=== PATIENT | female | born 1945 | race Caucasian/White ===

== ENCOUNTER 2018-09-02 04:01 | Inpatient (IN) | payer MEDICARE, OTHER ==
[2018-09-02] VITALS (20 sets, daily range): BP systolic 67–168; BP diastolic 18–107
[~2018-09-02] VITALS: Ht 157.5 cm; Wt 112.5 kg
--- NOTE | 2018-09-02 04:26 | NUR ---
PT BIB RA WITH A C/O AMS, FOUND SITTING BY HER BED AT [facility]. STAFF WAS UNABLE TO LIFT THE PT UP AND CALLED 911. PER STAFF AT [facility], PT IS ALTERED. PT WAS TRIAGED AND TAKEN TO ROOM #17. PT WAS PLACED ON THE MONITOR AND CONTINUOUS PULSE OX. PT HAS LIPEDEMA FROM THE WAIST TO THE FEET. PT HAS BUE BRUISES NOTED.
[2018-09-02 04:27] LABS: EOSINOPHILS % (AUTO) 1.1 % (0.0-6.0); HEMATOCRIT 32 % (33-45); HEMOGLOBIN 9.9 g/dL (11.5-14.8); LYMPHOCYTES # (AUTO) 1.7 /CMM (0.8-4.8); LYMPHOCYTES % (AUTO) 22.9 % (20.0-44.0); MEAN CORPUSCULAR HGB CONC 31 g/dl (31.0-36.0); MEAN CORPUSCULAR VOLUME 74 fL (82-100); MONOCYTES % (AUTO) 0.1 % (2.0-12.0); NEUTROPHILS # (AUTO) 5.7 /CMM (1.8-8.9); NEUTROPHILS % (AUTO) 75.9 % (43.0-81.0); PLATELET COUNT (AUTO) 194 /CMM (150-450); RED BLOOD CELL COUNT(AUTO) 4.29 MIL/uL (4.0-5.2); WHITE BLOOD COUNT (AUTO) 7.6 K/uL (4.3-11.0)
[2018-09-02 04:29] LABS: APPEARANCE,URINE Cloudy (CLEAR); BILIRUBIN,URINE MODERATE (NEGATIVE); BLOOD, URINE Negative Ery/uL (NEGATIVE); COLOR,URINE Yellow (YELLOW); KETONES,URINE 15 (NEGATIVE); LEUKOCYTE ESTERASE ,URINE Negative (NEGATIVE); NITRITE, URINE Negative (NEGATIVE); PROTEIN,URINE >=300 mg/dl (NEGATIVE); UGLUCOSE Negative (NEGATIVE)
[2018-09-02 04:35] LABS: CALCIUM, SERUM 8.4 mg/dL (8.5-10.1); CARBON DIOXIDE 29 mmol/L (21-32); CHLORIDE 99 mmol/L (98-107); CREATININE 2.3 mg/dL (0.6-1.3); GLUCOSE 89 mg/dL (74-106); POTASSIUM 3.9 mmol/L (3.5-5.1); SODIUM SERUM 138 mmol/L (136-145); UREA NITROGEN, BLOOD 55 mg/dL (7-18)
[2018-09-02 04:41] LABS: ALANINE AMINOTRANSFERASE 38 U/L (12-78); ALBUMIN 3.5 g/dL (3.4-5.0); ALKALINE PHOSPHATASE 188 U/L (46-116); ASPARTATE AMINOTRANSFERASE 31 U/L (15-37); BILIRUBIN,DIRECT 0.6 mg/dL (0.0-0.2); BILIRUBIN,TOTAL 1.1 mg/dL (0.2-1.0)
[2018-09-02 04:43] LABS: BACTERIA,URINE Few /HPF (None Seen); RBC,URINE 0-2 /HPF (0-2); SQUAMOUS EPITHELIAL CELL,UR Few /HPF (None Seen)
[2018-09-02 04:44] LABS: URINE AMORPHOUS URATE Moderate /HPF (None Seen)
--- NOTE | 2018-09-02 04:45 | NUR ---
CALLED HOUSE SUP FOR TELE BED
[2018-09-02 04:48] LABS: EOSINOPHILS % (MANUAL) 2 % (0-4); LYMPHOCYTES % (MANUAL) 16 % (16-48); MONOCYTES % (MANUAL) 4 % (0-11.0); NEUTROPHILS % (MANUAL) 78 (42-76)
[2018-09-02] MEDS ORDERED: FERR325T23 PO (05:24)
[2018-09-02] MEDS ORDERED: PANT40TA2 PO (05:24)
[2018-09-02] MEDS ORDERED: FURO-144 PO (05:24)
[2018-09-02] MEDS ORDERED: [UNRECOGNIZED DRUG - OTHER] (05:24)
[2018-09-02] MEDS ORDERED: VIT B-1 PO (05:24)
[2018-09-02] MEDS ORDERED: AMLO10TA7 PO (05:24)
[2018-09-02] MEDS ORDERED: SUCR1TAB PO (05:24)
--- NOTE | 2018-09-02 05:35 | NUR ---
CALLING REPORT TO TELE NURSE.
--- NOTE | 2018-09-02 05:41 | NUR ---
ER DOC ON PHONE WITH HOSPITALIST
[2018-09-02] MEDS ORDERED: NA P133E RC (05:46)
[2018-09-02] MEDS ORDERED: NOVOLOG FLEXPEN SQ (06:09)
[2018-09-02] MEDS ORDERED: SITA50TA PO (06:09)
[2018-09-02] MEDS ORDERED: TYL2T PO (06:09)
[2018-09-02] MEDS ORDERED: FOLI1TAB16 PO (06:09)
[2018-09-02] MEDS ORDERED: MYLANTA PO (06:09)
[2018-09-02] MEDS ORDERED: METO-357 PO (06:09)
[2018-09-02] MEDS ORDERED: MULT-1185 PO (06:09)
[2018-09-02] MEDS ORDERED: ONDA4TAB11 PO (06:09)
[2018-09-02] MEDS ORDERED: LUBI24CA5 PO (06:09)
[2018-09-02] MEDS ORDERED: ALBUT2 CONTNEB (06:09)
[2018-09-02] MEDS ORDERED: MAGN2400 PO (06:09)
[2018-09-02] MEDS ORDERED: IPRA12.9 IH (06:09)
[2018-09-02] MEDS ORDERED: HYDR-4075 PO (06:09)
[2018-09-02] MEDS ORDERED: ISOS10TA8 PO (06:09)
[2018-09-02] MEDS ORDERED: BISA-79 PR (06:09)
[2018-09-02] MEDS ORDERED: HYDR-4384 PO (06:09)
[2018-09-02] MEDS ORDERED: DOCU-141 PO (06:09)
--- NOTE | 2018-09-02 06:31 | NUR ---
RN NOTES 0600 Received patient via gurney accompanied by 2 ER staff. Admitted to Tele 327-2 due to AMS. Admission routine done. A/O to person only, Portuguese speaking, electric mule driver used. Patient claimed pain on throat, unable to rate the pain. Kept on bed comfortably. On O2 inhalation via NC @ 2LPM, no SOB/respiratory distress noted. Elevated HOB. Kept bed low and locked, siderails x3 up, bed alarm on. Call light at bedside. Endorsed to the next shift.
[2018-09-02] MEDS ORDERED: IV NS 0.9% 1,000 ML IV PRN (06:40)
[2018-09-02] MEDS ORDERED: MAGNESIUM HYDROXIDE 30 ML UDC PO PRN (07:00)
[2018-09-02] MEDS ORDERED: MAG HYDROX/AL HYDROX/SIMETH 30 ML UDC PO PRN (07:00)
[2018-09-02] MEDS ORDERED: BISACODYL (5 MG) 5 MG TABLET.DR PO SCH (07:00)
[2018-09-02] MEDS ORDERED: ALBUTEROL FS 2.5 MG/3 ML VIAL.NEB CONTNEB PRN (07:00)
[2018-09-02] MEDS: FOLIC ACID 1 MG TABLET PO SCH ×3 (07:00→17:53)
[2018-09-02] MEDS ORDERED: ONDANSETRON HCL/PF 4 MG/2 ML VIAL IVP PRN (07:00)
[2018-09-02] MEDS ORDERED: ZOLPIDEM TARTRATE 5 MG TABLET PO PRN (07:00)
--- NOTE | 2018-09-02 07:02 | NUR ---
RN NOTES STILL AWAITING FOR THE PHARMACY TO VERIFY MEDICATIONS ORDERED AT THIS TIME.
--- NOTE | 2018-09-02 09:00 | NUR ---
RN NOTES PATIENT HAS POLST FOR DNR FROM SNF. SPOKE WITH DR. SPARKS, DNR TO BE CONTINUED FOR HOSPITALIZATION PER MD.
[2018-09-02] MEDS: ISOSORBIDE MONONITRATE 20 MG TABLET PO SCH ×3 (09:45→17:00)
[2018-09-02] MEDS: METOPROLOL SUCCINATE 50 MG TAB.SR.24H PO SCH (09:48)
[2018-09-02] MEDS: DOCUSATE SODIUM 100 MG CAPSULE PO SCH ×2 (09:48→17:53)
[2018-09-02] MEDS: AMLODIPINE BESYLATE 10 MG TABLET PO SCH (09:48)
[2018-09-02] MEDS: FERROUS SULFATE (325 MG) 325 MG/TAB TABLET PO SCH ×2 (09:48→17:53)
[2018-09-02] MEDS: SUCRALFATE 1 G TABLET PO SCH ×2 (09:48→17:53)
[2018-09-02] MEDS: LINAGLIPTIN 5 MG TABLET PO SCH (09:51)
[2018-09-02] MEDS: hydrALAZINE HCL 10 MG TABLET PO SCH ×3 (09:53→17:00)
--- NOTE | 2018-09-02 13:45 | NUR ---
RN NOTES RECEIVED LAB RESULTS FOR AMMONIA LEVEL 93, NOTIFIED LYLY SPARKS DNP. AWAITING NEW ORDERS.
--- NOTE | 2018-09-02 14:34 | NUR ---
RN NOTES RECEIVED ORDER FROM DR SPARKS TO ADMINISTER LACTULOSE 20mg PO Q 6HRS FOR ELEVATED AMMONIA LEVEL. WILL CARRY OUT ORDER AND CONTINUE TO MONITOR PT.
[2018-09-02] MEDS: LACTULOSE 10 G/15 ML UDC (PYXIS) PO SCH ×2 (15:16→21:50)
--- NOTE | 2018-09-02 19:15 | NUR ---
MS RN CLOSING NOTES PT IN BED AWAKE A/O X1-2, AND ABLE TO MAKE NEEDS KNOWN. PT DENIES PAIN OR DISCOMFORT AT THIS TIME. BREATHING EVEN AND UNLABORED TOLERATING 2 LI. O2 THERAPY VIA NASAL CANNULA. IV ACCESS ON RIGHT WRIST G#20, PATENT AND INTACT WITH NO REDNESS OR SWELLING NOTED. SAFETY MEASURES IN PLACE WITH BED IN LOWEST AND LOCKED POSITION WITH SIDE RAILS UP X2. CALL LIGHT WITHIN REACH. ALL MEDICATIONS AND NEEDS MET. WILL ENDORSE TO THERMOPLASTIC TECHNICIAN NURSE FOR RAY.
--- NOTE | 2018-09-02 19:20 | NUR ---
RN NOTES RECEIVED PATIENT IN BED AWAKE A/O X1, ABLE TO MAKE NEEDS KNOWN. PATIENT DENIES PAIN OR DISCOMFORT AT THIS TIME. BREATHING EVEN AND UNLABORED TOLERATING 2 L O2 THERAPY VIA NASAL CANNULA. POSITIONED TOWARDS HER LEFT SIDE, IV ACCESS ON RIGHT WRIST G#20, PATENT AND INTACT WITH NO REDNESS OR SWELLING NOTED. SAFETY MEASURES IN PLACE WITH BED IN LOWEST AND LOCKED POSITION WITH SIDE RAILS UP X2. CALL LIGHT WITHIN REACH. WILL MONITOR ACCORDINGLY.
--- NOTE | 2018-09-02 19:50 | NUR ---
RN NOTES REPOSITIONED PATIENT TOGETHER WITH FRONT OFFICE SPEC, SATING 92% ON O2 AT 2LPM VIA NASAL CANNULA. WILL CONTINUE TO MONITOR.
--- NOTE | 2018-09-02 20:15 | NUR ---
RN NOTES PATIENT TRYING TO GET OUT OFF BED SEVERAL TIMES, REPOSITIONED PATIENT, WITH THE HELP OF CHAINSTITCH ELASTIC ATTACHER.
--- NOTE | 2018-09-02 20:15 | NUR ---
RN NOTES PATIENT TRYING TO GET OUT OF BED SEVERAL TIMES, REPOSITIONED PATIENT WITH THE HELP OF ACCOUNT RECEIVABLE ASSOCIATE, PATIENT NOTED UNRESPONSIVE STARTED TURNING BLUE AND PURPLISH AND MADE SOME GURGLING SOUND; CPR INITIATED. CHARGE NURSE CALLED FOR CODE BLUE AT 2017, ACLS AT 2019 BY CODE TEAM ( DR. Katherine BASILIO, ACLS NURSE ENRIQUE SHAH, NURSE PARTS REMOVER HEATHER LOYA, CHARGE NURSE Katherine LYN, RECORDER: Crystal DELUCARN, RTs Bennett BARROW,MAXIMILIANO, Lucien BRYANT). 2021 HR WAS 38 WITH PEA RHYTHM SATURATION OF 19% 1MG OF EPINEPHRINE GIVEN BY ACLS NURSE ENRIQUE, RHYTHM RESPONSE WAS SINUS ZAINAB, AT 2024 HR 56 WITH SINUS ZAINAB UNABLE TO OBTAIN BP RR 26 SATING 60%, HR WENT UP TO 103 WITH BP OF 91/26, CHECKED BLOOD SUGAR 99MG/DL, 2025 HR 69 BP 146/90 RR 26, STOPPED CPR, PATIENT IS DNR/DNI PER MD ORDER AT THE CHART. CHARGE NURSE NATHAN CALLED AND SPOKE TO SON ELEAZAR CORNEJO, SON WANTED A FULL CODE AND TO RESUSCITATE PATIENT, 2026 RESUMED CPR HR 103 SINUS TACH BP OF 146/90 RR28 SATING 67%, 2027 HR 73 SINUS RHYTHM BP 146/98 RR28, SATING 79%, 2034 HR 68 SINUS RHYTHM, BP 217/110 SATING 100%. 2039 TRANSFERRED TO ICU VIA BED PER ACLS PROTOCOL.
--- NOTE | 2018-09-02 20:18 | NUR ---
RN NOTES NOTED PATIENT TURNING BLUE WHILE TRYING TO REPOSITIONED THE PATIENT, UNRESPONSIVE, CPR INITIATED, CHARGE NURSE NATHAN CALLED FOR CODE BLUE.
--- NOTE | 2018-09-02 20:43 | NUR ---
RN NOTES REPORT GIVEN TO ICU NURSE VINI.
--- NOTE | 2018-09-02 20:45 | NUR ---
RN NOTES TRANSPORTED PATIENT TO ICU.
--- NOTE | 2018-09-02 20:50 | NUR ---
BIRDCAGE ASSEMBLER - NOTE - RECEIVED PT FROM 3W, PT WAS INTUBATED DUE TO RESPIRATORY FAILURE. PT HAS 7.5 ETT, 24 CM AT LIP, O2SAT 100%, PT ABDOMEN IS DISTENDED, PT IS AGITATED ON VENT, WILL START ON PROPOFOL, AQUACULTURE FARMER. PT IS IN SINUS ZAINAB/NSR HR 58-70S, BP WNL. PT HAS ONLY RIGHT HAND 20G IV. PT HAS SOME BRUISING ON THE LEGS. WILL CONTINUE TO MONITOR
[2018-09-02] MEDS ORDERED: EPINEPHRINE (1:10,000) SYRINGE 1 MG/10 ML DISP.SYRIN IVP ONE (21:00)
[2018-09-02] MEDS: PROPOFOL 100 ML IV PRN (21:34)
[2018-09-02 21:52] LABS: ABG OXYGEN SATURATION 99.6 % (92.0-98.5); ABG PCO2 51.7 mmHg (35.0-45.0); ABG PH 7.285 (7.350-7.450); ABG PO2 405.9 mmHg (75.0-100.0); AaDO2 255.4 mmHg; COHb 0.6 % (0.5-1.5); MetHb 0.5 % (0.0-1.5); O2Hb 98.5 % (94.0-97.0); PEEP,BG 5 cm H2O; SITE, ABG Left Radial; VT, ABG 500 mL
--- NOTE | 2018-09-02 22:08 | NUR ---
vent changes ac 18 per md larry post abg results verbal order titrate fio2 per spo2 Addendum: 09/02/18 at 2209 by KATH BRYANT RT Amended: Links added.
--- NOTE | 2018-09-02 22:12 | NUR ---
rt responded to overhead code blue. rt arrived at bedside cpr in progress pt ventilated by ambu bag and mask. pt intubated by er physician 7.5@24cm. pt transferred to icu at 2044 and plaved on vent settings ac 16 500 100% +5. vent plugged into red outlet, disconnect alarms checked. ambu bag at bedside. alarms set and audible. ett secure via anchor fast. small amount of thick red secretions. head of bed at 30 degrees. oral secretions suctioned via [place] Addendum: 09/02/18 at 2220 by KATH BRYANT RT Amended: Links added.
[2018-09-02] MEDS ORDERED: NOREPINEPHRINE 8 MG in IV D5W 500 ML IV PRN (22:30)
[2018-09-02] MEDS ORDERED: IV NS 0.9% 500 ML IV ONE (22:30)
--- NOTE | 2018-09-02 22:45 | NUR ---
PT TEMP UNABLE TO READ VIA ORAL OR AXILLARY, CORE TEMP 92.7, WILL APPLY LIDIA HENDRIX
[2018-09-02 22:56] LABS: BASOPHILS % (AUTO) 0.1 % (0.0-2.0); HEMATOCRIT 32 % (33-45); LYMPHOCYTES # (AUTO) 0.3 /CMM (0.8-4.8); LYMPHOCYTES % (AUTO) 3.4 % (20.0-44.0); MEAN CORPUSCULAR HGB CONC 31 g/dl (31.0-36.0); MEAN CORPUSCULAR VOLUME 74 fL (82-100); MONOCYTES # (AUTO) 0.5 /CMM (0.1-1.30); MONOCYTES % (AUTO) 5.1 % (2.0-12.0); NEUTROPHILS # (AUTO) 9.4 /CMM (1.8-8.9); NEUTROPHILS % (AUTO) 91.4 % (43.0-81.0); PLATELET COUNT (AUTO) 196 /CMM (150-450); RED BLOOD CELL COUNT(AUTO) 4.33 MIL/uL (4.0-5.2); WHITE BLOOD COUNT (AUTO) 10.3 K/uL (4.3-11.0)
[2018-09-02 23:03] LABS: CALCIUM, SERUM 8.1 mg/dL (8.5-10.1); CARBON DIOXIDE 24 mmol/L (21-32); CHLORIDE 101 mmol/L (98-107); CREATININE 2.7 mg/dL (0.6-1.3); GLUCOSE 114 mg/dL (74-106); POTASSIUM 4.4 mmol/L (3.5-5.1); SODIUM SERUM 141 mmol/L (136-145); UREA NITROGEN, BLOOD 61 mg/dL (7-18)
[2018-09-02 23:10] LABS: ALANINE AMINOTRANSFERASE 42 U/L (12-78); ALBUMIN 3.2 g/dL (3.4-5.0); ALKALINE PHOSPHATASE 173 U/L (46-116); ASPARTATE AMINOTRANSFERASE 42 U/L (15-37); BILIRUBIN,TOTAL 1.5 mg/dL (0.2-1.0); TOTAL PROTEIN, SERUM 7.4 g/dL (6.4-8.2)
[2018-09-02] MEDS: IV NS 0.9% 1,000 ML IV PRN (23:33)
--- NOTE | 2018-09-02 23:50 | NUR ---
fio2 decreased due to increased spo2 rn aware Addendum: 09/03/18 at 0414 by KATH FARRIS Amended: Links added.
[2018-09-03] VITALS (111 sets, daily range): BP systolic 41–144; BP diastolic 21–70
[2018-09-03] MEDS ORDERED: CEFTRIAXONE 1 G VIAL ONE (00:56)
[2018-09-03] MEDS ORDERED: CEFTRIAXONE 1 G in IV D5W 50 ML IV SCH (01:00)
[2018-09-03] MEDS: LACTULOSE 10 G/15 ML UDC (PYXIS) PO SCH ×4 (02:17→21:14)
[2018-09-03] MEDS ORDERED: NOREPINEPHRINE 4 MG/4 ML AMPUL IV ONE (03:23)
[2018-09-03] MEDS: NOREPINEPHRINE 8 MG in IV D5W 500 ML IV PRN ×2 (03:34→08:49)
[2018-09-03 04:50] LABS: BASOPHILS % (AUTO) 0.1 % (0.0-2.0); EOSINOPHILS % (AUTO) 0.2 % (0.0-6.0); HEMATOCRIT 32 % (33-45); HEMOGLOBIN 9.9 g/dL (11.5-14.8); LYMPHOCYTES # (AUTO) 0.8 /CMM (0.8-4.8); LYMPHOCYTES % (AUTO) 7.8 % (20.0-44.0); MEAN CORPUSCULAR HGB CONC 32 g/dl (31.0-36.0); MEAN CORPUSCULAR VOLUME 74 fL (82-100); MONOCYTES # (AUTO) 0.6 /CMM (0.1-1.30); MONOCYTES % (AUTO) 5.8 % (2.0-12.0); NEUTROPHILS # (AUTO) 8.5 /CMM (1.8-8.9); NEUTROPHILS % (AUTO) 86.1 % (43.0-81.0); PLATELET COUNT (AUTO) 170 /CMM (150-450); RED BLOOD CELL COUNT(AUTO) 4.28 MIL/uL (4.0-5.2); WHITE BLOOD COUNT (AUTO) 9.9 K/uL (4.3-11.0)
[2018-09-03 05:06] LABS: ALANINE AMINOTRANSFERASE 34 U/L (12-78); ALBUMIN 2.9 g/dL (3.4-5.0); ALKALINE PHOSPHATASE 163 U/L (46-116); ASPARTATE AMINOTRANSFERASE 37 U/L (15-37); BILIRUBIN,TOTAL 1.3 mg/dL (0.2-1.0); CALCIUM, SERUM 7.9 mg/dL (8.5-10.1); CARBON DIOXIDE 25 mmol/L (21-32); CHLORIDE 100 mmol/L (98-107); CREATININE 2.9 mg/dL (0.6-1.3); GLUCOSE 102 mg/dL (74-106); MAGNESIUM 2.5 mg/dL (1.8-2.4); PHOSPHORUS 6.7 mg/dL (2.5-4.9); POTASSIUM 4.3 mmol/L (3.5-5.1); SODIUM SERUM 137 mmol/L (136-145); TOTAL PROTEIN, SERUM 6.9 g/dL (6.4-8.2); UREA NITROGEN, BLOOD 61 mg/dL (7-18)
[2018-09-03 05:33] LABS: CHOLESTEROL 96 mg/dL (<200); CREATINE KINASE, TOTAL 175 U/L (26-192); FERRITIN 53 ng/mL (8-388); HDL CHOLESTEROL 47 mg/dL (40-60); LDL 43 mg/dL (0-99); THYROID STIMULATING HORMONE 11.073 uIU/mL (0.358-3.74); TRIGLYCERIDES 92 mg/dL (30-150)
[2018-09-03 05:38] LABS: IRON, SERUM 52 ug/dl (50-175); TOTAL IRON BINDING CAPACITY 378 ug/dl (250-450)
--- NOTE | 2018-09-03 07:10 | NUR ---
RN INITIAL NOTES RECEIVED PT INTUBATED, ON VENT. HOB ELEVATED. PT NOTED WITH MILD AGITATION. UNCONTROLLED COUGHING AND TRYING TO MOVE BILATERAL HANDS TOWARDS ETT. DIPRIVAN INCREASED PER PROTOCOL. OG IN PLACE,CLAMPED. NO RESIDUAL NOTED. IV LINES IN PLACE. ON LEVO AT 8MCG/MIN AND NS AT 60ML/HR. AWAITING FOR PICC INSERTION. FC IN PLACE. BLE ELEVATED. WILL CLOSELY MONITOR.
--- NOTE | 2018-09-03 07:46 | NUR ---
WOUND CARE CONSULT: PT UNSTABLE FOR SKIN ASSESSMENT AT THIS TIME, S/P CODE BLUE AND INTUBATED, AGITATED. DISCUSSED SKIN PROTECTION WITH NURSING STAFF. WILL SEE PT PT CONDITION PERMITS.
[2018-09-03] MEDS: FOLIC ACID 1 MG TABLET PO SCH ×2 (08:25→16:43)
[2018-09-03] MEDS: LINAGLIPTIN 5 MG TABLET PO SCH (08:25)
[2018-09-03] MEDS: DOCUSATE SODIUM 100 MG CAPSULE PO SCH ×2 (08:25→16:43)
[2018-09-03] MEDS: FERROUS SULFATE (325 MG) 325 MG/TAB TABLET PO SCH ×2 (08:25→16:43)
[2018-09-03] MEDS: SUCRALFATE 1 G TABLET PO SCH ×2 (08:25→16:43)
[2018-09-03] MEDS: hydrALAZINE HCL 10 MG TABLET PO SCH ×2 (08:26→13:00)
[2018-09-03] MEDS: AMLODIPINE BESYLATE 10 MG TABLET PO SCH (08:26)
[2018-09-03] MEDS: ISOSORBIDE MONONITRATE 20 MG TABLET PO SCH ×2 (08:26→13:00)
[2018-09-03] MEDS: METOPROLOL SUCCINATE 50 MG TAB.SR.24H PO SCH (08:26)
[2018-09-03 09:54] LABS: ABG BASE EXCESS -1.6 mmol/L; ABG OXYGEN SATURATION 90.8 % (92.0-98.5); ABG PCO2 37.2 mmHg (35.0-45.0); ABG PH 7.405 (7.350-7.450); ABG PO2 63.7 mmHg (75.0-100.0); AaDO2 323.2 mmHg; COHb 0.9 % (0.5-1.5); MetHb 0.6 % (0.0-1.5); O2Hb 89.4 % (94.0-97.0); PEEP,BG 5 cm H2O; SITE, ABG Left Radial; VT, ABG 500 mL
--- NOTE | 2018-09-03 10:00 | NUR ---
RN NOTES 0930 SEEN AND EXAMINED BY DR MÉNDEZ. PT INTUBATED, ON VENT. PT SEDATED, UNABLE TO DO SEDATION VACATION D/T AGITATION. ON LEVO AT 10MCG/MIN. AWARE OF ABG RESULT. NO NEW ORDER. WILL MONITOR 1000 SEEN AND EXAMINED BY DR LIU. AWARE OF LAB VALUES, ABG AND CXR RESULT. PT INTUBATED, ON VENT. ON DIPRIVAN AT 20MCG/KG/MIN AND LEVO AT 60ML/HR. HEPARIN ORDERED. WILL CLOSELY MONITOR.
[2018-09-03] MEDS: HEPARIN SODIUM, PORCINE 5000 UNITS/1 ML VIAL SQ SCH ×2 (10:46→21:14)
[2018-09-03] MEDS: PROPOFOL 100 ML IV PRN ×3 (13:04→23:44)
--- NOTE | 2018-09-03 13:30 | NUR ---
RN NOTES CALL RECEIVED FROM DR DEAL REGARDING CHEST XRAY RESULTS THAT ET TUBE THAT NEEDS TO BE PULLED BACK 4-5 CM. ALEXIA BUCKLEY NOTIFED.
[2018-09-03] MEDS: IV NS 0.9% 1,000 ML IV PRN (15:30)
--- NOTE | 2018-09-03 18:37 | NUR ---
RT END OF THE SHIFT REPORT, PT. 73 YEARS OLD FEMALE REC. IN AM 0700 PT. ORALLY INTUBATED ( FOUND ETT # 7.5 @26 CM LIP LINE) ON VENT WITH NOTED SETTINGS, @1340 ETT TUBE ADJUSTED 22 CM LIP LINE ( PULLED OUT 4 CM PER MD ORDER ) T/O DAY NO OTHER CHANGES AND PT. REMAIN STABLE, B/S BILATERALLY RALES, SUX'D FOR MINIMAL/AMT AMT REDDISH SECRETIONS, MANAGER COUNCIL DONE, EQUAL CHEST RISE NOTED, HME CHANGED, VENT PLUGGED INTO RED OUT LET. AMBU BAG REMAIN AT THE BEDSIDE. REPORT WILL PASS TO PM SHIFT. Addendum: 09/03/18 at 1843 by VALARIE JAIME RT Amended: Links added.
--- NOTE | 2018-09-03 18:40 | NUR ---
RN CLOSING NOTES PT REMAINS INTUBATED, ON VENT. PT KEPT SEDATED. NO RESPIRATORY DISTRESS NOTED. PT REMAINS ON LEVO AND DIPRIVAN, TITRATED ACCORDINGLY. KEPT CLEAN AND DRY. REPOSITIONED Q2. KEPT COMFORTABLE. WILL MONITOR
--- NOTE | 2018-09-03 20:00 | NUR ---
LIMEROCK TOWER LOADER - NOTES - PT IS INTUBATED, ON VENT. PT KEPT SEDATED. NO RESPIRATORY DISTRESS NOTED. PT REMAINS ON LEVO AND DIPRIVAN, TITRATED ACCORDINGLY. KEPT CLEAN AND DRY. REPOSITIONED Q2. KEPT COMFORTABLE. WILL MONITOR
[2018-09-03 20:12] LABS: APPEARANCE,URINE TURBID (CLEAR); BILIRUBIN,URINE 2+ (NEGATIVE); BLOOD, URINE 3+ Ery/uL (NEGATIVE); COLOR,URINE DARK YELLO (YELLOW); KETONES,URINE TRACE (NEGATIVE); LEUKOCYTE ESTERASE ,URINE 2+ (NEGATIVE); NITRITE, URINE NEGATIVE (NEGATIVE); PROTEIN,URINE 3+ mg/dl (NEGATIVE); UGLUCOSE NEGATIVE (NEGATIVE)
--- NOTE | 2018-09-03 20:18 | NUR ---
RECEIVED PT INTUBATED 7.5 ETT SECURED AT 22CM AT THE LIP. NO RESP DISTRESS NOTED, PT TOLERATING VENT SETTINGS. SX'D FOR MOD AMT OF THICK BALLARD SECRETIONS. VENT ALARMS SET AND AUDIBLE. CUFF B2B MANAGED SERVICE SALES EXEC. VENT PLUGGED INTO RED OUTLET. WILL CONTINUE TO MONITOR. Addendum: 09/03/18 at 2020 by ALEJO FERNANDES RT Amended: Links added.
[2018-09-03 20:23] LABS: CREATININE, URINE 250.6 MG/DL (30.0-125.0); URINE TOTAL PROTEIN 227.5 mg/dL (0-11.9)
[2018-09-03 20:33] LABS: RBC,URINE 81-100 /HPF (0-2); SQUAMOUS EPITHELIAL CELL,UR Few /HPF (None Seen); WBC,URINE 51-80 /HPF (0-3)
[2018-09-03 20:34] LABS: BACTERIA,URINE Many /HPF (None Seen)
[2018-09-03] MEDS: PIPERACILLIN /TAZOBACTAM 3.375 G in IV D5W 100 ML IV SCH (20:56)
[2018-09-03] MEDS ORDERED: PIPERACILLIN /TAZOBACTAM 2.25 G in IV D5W 50 ML IV SCH (21:00)
--- NOTE | 2018-09-03 21:32 | NUR ---
SPUTUM COLLECTED. RN NOTIFIED.
[2018-09-03 22:01] LABS: EOSINOPHIL,URINE None Seen
[2018-09-03] MEDS: NOREPINEPHRINE 16 MG in IV D5W 500 ML IV PRN (23:44)
[2018-09-04] VITALS (104 sets, daily range): BP systolic 80–123; BP diastolic 32–74
[2018-09-04] MEDS: LACTULOSE 10 G/15 ML UDC (PYXIS) PO SCH ×4 (03:38→20:53)
[2018-09-04 04:14] LABS: BASOPHILS # (AUTO) 0.1 /CMM (0.0-0.2); BASOPHILS % (AUTO) 0.4 % (0.0-2.0); EOSINOPHILS % (AUTO) 0.4 % (0.0-6.0); HEMATOCRIT 33 % (33-45); HEMOGLOBIN 10.3 g/dL (11.5-14.8); LYMPHOCYTES # (AUTO) 1.2 /CMM (0.8-4.8); LYMPHOCYTES % (AUTO) 8.1 % (20.0-44.0); MEAN CORPUSCULAR HGB CONC 32 g/dl (31.0-36.0); MEAN CORPUSCULAR VOLUME 73 fL (82-100); MONOCYTES # (AUTO) 1.4 /CMM (0.1-1.30); MONOCYTES % (AUTO) 9.1 % (2.0-12.0); NEUTROPHILS # (AUTO) 12.3 /CMM (1.8-8.9); PLATELET COUNT (AUTO) 234 /CMM (150-450); RED BLOOD CELL COUNT(AUTO) 4.45 MIL/uL (4.0-5.2); WHITE BLOOD COUNT (AUTO) 15.1 K/uL (4.3-11.0)
[2018-09-04 04:27] LABS: ALANINE AMINOTRANSFERASE 38 U/L (12-78); ALBUMIN 2.8 g/dL (3.4-5.0); ALKALINE PHOSPHATASE 159 U/L (46-116); ASPARTATE AMINOTRANSFERASE 42 U/L (15-37); BILIRUBIN,TOTAL 1.2 mg/dL (0.2-1.0); CALCIUM, SERUM 7.4 mg/dL (8.5-10.1); CARBON DIOXIDE 25 mmol/L (21-32); CHLORIDE 98 mmol/L (98-107); CREATININE 3.2 mg/dL (0.6-1.3); MAGNESIUM 2.5 mg/dL (1.8-2.4); PHOSPHORUS 6.6 mg/dL (2.5-4.9); POTASSIUM 4.5 mmol/L (3.5-5.1); SODIUM SERUM 135 mmol/L (136-145); TOTAL PROTEIN, SERUM 6.9 g/dL (6.4-8.2); UREA NITROGEN, BLOOD 68 mg/dL (7-18)
[2018-09-04 04:39] LABS: GLUCOSE 167 mg/dL (74-106)
[2018-09-04 04:43] LABS: SERUM AMMONIA 95 umol/L (11-32)
[2018-09-04] MEDS: PROPOFOL 100 ML IV PRN ×4 (05:15→20:48)
[2018-09-04 06:04] LABS: EOSINOPHILS % (MANUAL) 1 % (0-4); LYMPHOCYTES % (MANUAL) 10 % (16-48); MONOCYTES % (MANUAL) 9 % (0-11.0); NEUTROPHILS % (MANUAL) 80 (42-76)
[2018-09-04] MEDS: IV NS 0.9% 1,000 ML IV PRN (06:39)
--- NOTE | 2018-09-04 07:30 | NUR ---
RECEIVED CARE OF PATIENT. INTUBATED 7.10/23 TOLERATING VENT SETTINGS NO SOB NOTED. PATIENT CURRENTLY ON LEVO AND DIPRIVAN; SEE SPREADSHEET. LIGHTLY SEDATED AND GRIMACES TO PAIN/MOVEMENT. PICC LINE C/D/I/P WITH GOOD BLOOD RETURN. GUIDRY CATH TO GRAVITY. PATIENT NOTED WITH VERY LOOSE STOOL S/P LACTULOSE ADMIN; BED BATH COMPLETED. SKIN, SAFETY, ASPIRATION PRECAUTIONS IN PLACE AND WILL MONITOR
--- NOTE | 2018-09-04 07:41 | NUR ---
RT PATIENT REC'D INTUBATED ON [facility] VENT WITH ORDERED SETTINGS IN CRITICAL CONDITION. VENT ALARMS CHECKED + AUDIBLE. CUFF PRESSURE CHECKED BLOCK TESTER. B/S DIM. SUCTIONED AIRWAY WITH SMALL AMT BALLARD SEMITHICK SECRETIONS. AMBU BAG AT [facility]. Addendum: 09/04/18 at 1753 by JOAQUIN STOCK RT Amended: Links added.
[2018-09-04] MEDS: PIPERACILLIN /TAZOBACTAM 3.375 G in IV D5W 100 ML IV SCH ×2 (08:03→20:47)
[2018-09-04 08:10] LABS: ABG BASE EXCESS -4.4 mmol/L; ABG OXYGEN SATURATION 96.9 % (92.0-98.5); ABG PCO2 30.6 mmHg (35.0-45.0); ABG PH 7.416 (7.350-7.450); ABG PO2 100.1 mmHg (75.0-100.0); COHb 0.5 % (0.5-1.5); MetHb 0.7 % (0.0-1.5); O2Hb 95.7 % (94.0-97.0); SITE, ABG Right Radial
--- NOTE | 2018-09-04 08:16 | NUR ---
WOUND CARE: PT WAS AGAIN AGITATED WHEN SKIN ASSESSMENT ATTEMPTED THIS AM. WILL SEE PT PT CONDITION PERMITS. RECOMMEND BARIMAX ETS AIR BED. DISCUSSED WITH NURSING STAFF. ALL SKIN PROTECTION RECOMMENDATIONS IN PLACE AND DISCUSSED WITH NURSING STAFF.
[2018-09-04] MEDS: FERROUS SULFATE (325 MG) 325 MG/TAB TABLET PO SCH ×2 (08:21→16:40)
[2018-09-04] MEDS: FOLIC ACID 1 MG TABLET PO SCH ×2 (08:21→16:40)
[2018-09-04] MEDS: Z GUARD REMEDY 2 OZ OINT TP PRN (08:21)
[2018-09-04] MEDS: DOCUSATE SODIUM 100 MG CAPSULE PO SCH ×2 (08:21→16:40)
[2018-09-04] MEDS: SUCRALFATE 1 G TABLET PO SCH ×2 (08:21→16:40)
[2018-09-04] MEDS: LINAGLIPTIN 5 MG TABLET PO SCH (08:21)
[2018-09-04] MEDS: HEPARIN SODIUM, PORCINE 5000 UNITS/1 ML VIAL SQ SCH ×2 (08:31→20:57)
--- NOTE | 2018-09-04 08:35 | NUR ---
RESUMING SEDATION. PATIENT AGITATED AND TACHYPNEIC, THRASHING HEAD AND ATTEMPTING TO PULL ETT OUT. RESUMING SEDATION PER PROTOCOL
--- NOTE | 2018-09-04 08:45 | NUR ---
DR MÉNDEZ AT BEDSIDE MD UPDATED ON PATIENT CONDITION. NO NEW ORDERS AT THIS TIME.
--- NOTE | 2018-09-04 08:55 | NUR ---
DR LIU AT BEDSIDE. AWARE PATIENT SWELLING INCREASED AND ABDOMEN IS SEVERELY DISTENDED AND FIRM. NO OUTPUT FROM LIS OGT.
--- NOTE | 2018-09-04 09:24 | NUR ---
DR CANTOR AT BEDSIDE. MD AWARE SWELLING INCREASED. PER MD PLEASE STOP IVF NS
--- NOTE | 2018-09-04 11:00 | NUR ---
DR GREY AT BEDSIDE. UPDATED PATIENT UO ABOUT 20ML/HOUR
--- NOTE | 2018-09-04 11:40 | NUR ---
WOUND CARE CONSULT: PT PRESENTS WITH 4+ PITTING EDEMA WHICH IS GENERALIZED AND HARDENED SKIN TO ABDOMEN AND THIGHS, PRESENT ON ADMISSION. SKIN TEAR NOTED TO RT ELBOW AREA. PT HAS GUIDRY CATH AND RECTAL TUBE. RECOMMENDATIONS MADE FOR SKIN PROTECTION AND WOUND CARE. DISCUSSED WITH NURSING STAFF. WILL SEE APOLLON. MARQUITA ETS AIR BED ORDERED. IN AGREEMENT WITH PLAN OF CARE. CURRENT MANINDER SCORE IS 12. PT INTUBATED. Addendum: 09/04/18 at 1143 by LESLIE SWANN WNDNU Amended: Links added.
[2018-09-04] MEDS: ALBUMIN 25% 25 GM in PREMIX 1 EA IV SCH ×2 (13:02→18:32)
[2018-09-04 13:10] LABS: PTH, INTACT 165 pg/mL (15-65)
--- NOTE | 2018-09-04 18:50 | NUR ---
ALL DUE MEDS GIVEN AND ALL NEEDS MET. PATIENT CURRENT LEVO AT 8MCG/MIN AND DIPRIVAN 25MCG/KG/MIN AND SEDATED GRIMACING TO PAINFUL STIMULI. TOLERATING VENT SETTINGS NO SOB, DIFFICULTY BREATHING. GUIDRY TO GRAVITY AND PATENT INCREASED URINE OUTPUT TODAY. FLEXI SEAL IN PLACE S/T DIARRHEA FROM LACTULOSE; CLEAN AND DRY WITH 500ML OUTPUT. PATIENT CHANGED TO [facility] BED PER ORDER. SAFETY, SKIN, ASPIRATION PRECAUTIONS IN PLACE AND MONITORED THROUGHOUT DAY.
--- NOTE | 2018-09-04 19:39 | NUR ---
PT RECEIVED ORALLY INTUBATED WITH 7.5 ETT SECURED@ 22 CM ON MECHANICAL VENT W/ NOTED SETTINGS PER MD ORDER. PT IS SEDATED. VENT ALARMS CHECKED, VENT PLUGGED INTO RED OUTLET, AMBU BAG AT BEDSIDE. SUCTIONED MODERATE AMOUNT OF PINK TINGED SECRETIONS. ETT PATENT AND SECURED. METAL WORKER CUFF PRESSURE NOTED. NO RESPIRATORY DISTRESS NOTED AT THIS TIME . WILL CONTINUE TO MONITOR THE PT.
--- NOTE | 2018-09-04 20:20 | NUR ---
RN NOTES RECEIVED PATIENT ORALLY INTUBATED WITH ETT 7.5/22 CM AT LIP TOLERATING VENT SETTINGS OF AC 18 TV 500 FIO2 40% PEEP5 . NO SOB NOTED.SEDATED WITH DIPRIVAN RESPONSIVE TO PAIN BY GRIMACING. ALMAZ PICC LINE INTACT WITH GOOD BLOOD RETURN RUNNING WITH DIPRIVAN AND AND LEVOPHED . OGT CLAMPED NO RESIDUAL PRESENT INTACT AND PATENT. GUIDRY CATH TO GRAVITY. FLEXISEAL INTACT WITH VERY LOOSE STOOL. TURNED AND REPOSITIONED THE PATIENT BED KEPT IN LOWEST POSSIBLE POSITION. WILL CONTINUE TO MONITOR.
[2018-09-04] MEDS: DOXYCYCLINE HYCLATE (100 MG) 100 MG TABLET PO SCH (20:53)
[2018-09-05] VITALS (105 sets, daily range): BP systolic 86–142; BP diastolic 23–76
[2018-09-05] MEDS: PROPOFOL 100 ML IV PRN ×5 (01:58→23:36)
[2018-09-05] MEDS: LACTULOSE 10 G/15 ML UDC (PYXIS) PO SCH ×4 (02:00→20:40)
[2018-09-05] MEDS: ALBUMIN 25% 25 GM in PREMIX 1 EA IV SCH (02:55)
[2018-09-05 04:51] LABS: BASOPHILS # (AUTO) 0.1 /CMM (0.0-0.2); BASOPHILS % (AUTO) 0.6 % (0.0-2.0); EOSINOPHILS % (AUTO) 3.1 % (0.0-6.0); HEMATOCRIT 32 % (33-45); HEMOGLOBIN 10.2 g/dL (11.5-14.8); LYMPHOCYTES # (AUTO) 1.4 /CMM (0.8-4.8); LYMPHOCYTES % (AUTO) 17.4 % (20.0-44.0); MEAN CORPUSCULAR HGB CONC 32 g/dl (31.0-36.0); MEAN CORPUSCULAR VOLUME 74 fL (82-100); MONOCYTES # (AUTO) 0.9 /CMM (0.1-1.30); MONOCYTES % (AUTO) 10.6 % (2.0-12.0); NEUTROPHILS # (AUTO) 5.6 /CMM (1.8-8.9); NEUTROPHILS % (AUTO) 68.3 % (43.0-81.0); PLATELET COUNT (AUTO) 171 /CMM (150-450); RED BLOOD CELL COUNT(AUTO) 4.37 MIL/uL (4.0-5.2); WHITE BLOOD COUNT (AUTO) 8.2 K/uL (4.3-11.0)
[2018-09-05 05:08] LABS: ALANINE AMINOTRANSFERASE 27 U/L (12-78); ALBUMIN 3.8 g/dL (3.4-5.0); ALKALINE PHOSPHATASE 136 U/L (46-116); ASPARTATE AMINOTRANSFERASE 21 U/L (15-37); BILIRUBIN,TOTAL 1.4 mg/dL (0.2-1.0); CALCIUM, SERUM 7.7 mg/dL (8.5-10.1); CARBON DIOXIDE 23 mmol/L (21-32); CHLORIDE 99 mmol/L (98-107); CREATININE 2.9 mg/dL (0.6-1.3); GLUCOSE 204 mg/dL (74-106); MAGNESIUM 2.6 mg/dL (1.8-2.4); PHOSPHORUS 5.9 mg/dL (2.5-4.9); POTASSIUM 3.2 mmol/L (3.5-5.1); SODIUM SERUM 137 mmol/L (136-145); TOTAL PROTEIN, SERUM 7.3 g/dL (6.4-8.2); UREA NITROGEN, BLOOD 73 mg/dL (7-18)
[2018-09-05 05:11] LABS: *SPE A/G RATIO 0.8 (0.7-1.7); *SPE ALBUMIN 2.8 g/dL (2.9-4.4); *SPE ALPHA-1-GLOBULIN 0.3 g/dL (0.0-0.4); *SPE ALPHA-2-GLOBULIN 0.6 g/dL (0.4-1.0); *SPE BETA GLOBULIN 1.1 g/dL (0.7-1.3); *SPE GLOBULIN, TOTAL 3.5 g/dL (2.2-3.9); *SPE M-SPIKE Not Observed g/dL (Not Observed); *SPEGAMMA GLOBULIN 1.6 g/dL (0.4-1.8)
[2018-09-05] MEDS: NOREPINEPHRINE 16 MG in IV D5W 500 ML IV PRN ×2 (06:12→18:20)
[2018-09-05 06:23] LABS: EOSINOPHILS % (MANUAL) 2 % (0-4); LYMPHOCYTES % (MANUAL) 15 % (16-48)
[2018-09-05 06:24] LABS: MONOCYTES % (MANUAL) 7 % (0-11.0); NEUTROPHILS % (MANUAL) 76 (42-76)
--- NOTE | 2018-09-05 07:30 | NUR ---
RN NOTES PATIENT REMAINED SEDATED WITH DIPRIVAN. NO SIGNIFICANT CHANGED. CONTINUE WITH LEVOPHED TITRATED ORDERED. ETT AND VENT SETTING TOLERATED WELL. AFEBRILE THROUGHOUT THE SHIFT. ALL DUE MEDICINE GIVEN ORDERED. FLEXISEAL AND GUIDRY CATH INTACT AND PATENT DRAINED VIA GRAVITY. TURNED AND REPOSITIONED Q 2H AND PRN. ENDORSED CONTINUITY OF CARE TO AM NURSE.
[2018-09-05] MEDS: PIPERACILLIN /TAZOBACTAM 3.375 G in IV D5W 100 ML IV SCH ×2 (07:48→20:36)
[2018-09-05] MEDS: DOXYCYCLINE HYCLATE (100 MG) 100 MG TABLET PO SCH ×2 (09:26→20:41)
[2018-09-05] MEDS: FOLIC ACID 1 MG TABLET PO SCH ×2 (09:26→17:58)
[2018-09-05] MEDS: SUCRALFATE 1 G TABLET PO SCH ×2 (09:26→17:58)
[2018-09-05] MEDS: LINAGLIPTIN 5 MG TABLET PO SCH (09:26)
[2018-09-05] MEDS: FERROUS SULFATE (325 MG) 325 MG/TAB TABLET PO SCH ×2 (09:26→17:58)
[2018-09-05] MEDS: DOCUSATE SODIUM 100 MG CAPSULE PO SCH ×2 (09:26→17:00)
[2018-09-05] MEDS: HEPARIN SODIUM, PORCINE 5000 UNITS/1 ML VIAL SQ SCH ×2 (09:28→20:41)
[2018-09-05 09:48] LABS: ABG BASE EXCESS -3.1 mmol/L; ABG PCO2 32.5 mmHg (35.0-45.0); ABG PH 7.422 (7.350-7.450); ABG PO2 97.7 mmHg (75.0-100.0); AaDO2 222.2 mmHg; COHb 0.7 % (0.5-1.5); MetHb 0.5 % (0.0-1.5); O2Hb 95.8 % (94.0-97.0); PEEP,BG 5 cm H2O; SITE, ABG Left Radial; VT, ABG 500 mL
[2018-09-05] MEDS: IPRATROPIUM NEB FS 0.5 MG/2.5 ML AMPUL.NEB NEB PRN (10:27)
[2018-09-05] MEDS ORDERED: FUROSEMIDE 20 MG/2 ML VIAL IV ONE (20:00)
--- NOTE | 2018-09-05 20:00 | NUR ---
RN NOTES PATIENT ORALLY INTUBATED WITH ETT 7.5/22 CM AT LIP TOLERATING VENT SETTINGS OF AC 18 TV 500 FIO2 35% PEEP 5 . NO SOB NOTED.SEDATED WITH DIPRIVAN RESPONSIVE TO PAIN ALMAZ PICC LINE INTACT WITH GOOD BLOOD RETURN RUNNING WITH DIPRIVAN AND AND LEVOPHED . OGT CLAMPED NO RESIDUAL PRESENT INTACT AND PATENT. GUIDRY CATH TO GRAVITY. FLEXISEAL INTACT WITH VERY LOOSE STOOL.CONTINUE WITH LACTULOSE TURNED AND REPOSITIONED THE PATIENT BED KEPT IN LOWEST POSSIBLE POSITION. WILL CONTINUE TO MONITOR.
[2018-09-05] MEDS: FLUCONAZOLE (100 MG) 100 MG TABLET PO SCH (20:40)
[2018-09-06] VITALS (83 sets, daily range): BP systolic 89–126; BP diastolic 37–73
[2018-09-06] MEDS: LACTULOSE 10 G/15 ML UDC (PYXIS) PO SCH ×4 (02:54→20:37)
[2018-09-06 04:43] LABS: BASOPHILS % (AUTO) 0.5 % (0.0-2.0); EOSINOPHILS % (AUTO) 3.4 % (0.0-6.0); HEMATOCRIT 31 % (33-45); HEMOGLOBIN 9.7 g/dL (11.5-14.8); LYMPHOCYTES # (AUTO) 0.8 /CMM (0.8-4.8); LYMPHOCYTES % (AUTO) 11.9 % (20.0-44.0); MEAN CORPUSCULAR HGB CONC 32 g/dl (31.0-36.0); MEAN CORPUSCULAR VOLUME 73 fL (82-100); MONOCYTES # (AUTO) 0.6 /CMM (0.1-1.30); MONOCYTES % (AUTO) 8.3 % (2.0-12.0); NEUTROPHILS # (AUTO) 5.4 /CMM (1.8-8.9); NEUTROPHILS % (AUTO) 75.9 % (43.0-81.0); PLATELET COUNT (AUTO) 125 /CMM (150-450); RED BLOOD CELL COUNT(AUTO) 4.17 MIL/uL (4.0-5.2); WHITE BLOOD COUNT (AUTO) 7.1 K/uL (4.3-11.0)
[2018-09-06 05:03] LABS: CALCIUM, SERUM 7.8 mg/dL (8.5-10.1); CARBON DIOXIDE 24 mmol/L (21-32); CHLORIDE 102 mmol/L (98-107); CREATININE 2.2 mg/dL (0.6-1.3); GLUCOSE 166 mg/dL (74-106); MAGNESIUM 2.5 mg/dL (1.8-2.4); PHOSPHORUS 4.7 mg/dL (2.5-4.9); SODIUM SERUM 140 mmol/L (136-145); UREA NITROGEN, BLOOD 69 mg/dL (7-18)
[2018-09-06 05:15] LABS: POTASSIUM 2.7 mmol/L (3.5-5.1)
[2018-09-06 05:29] LABS: NEUTROPHILS % (MANUAL) 85 (42-76)
[2018-09-06 05:30] LABS: EOSINOPHILS % (MANUAL) 2 % (0-4); LYMPHOCYTES % (MANUAL) 8 % (16-48); MONOCYTES % (MANUAL) 5 % (0-11.0)
[2018-09-06] MEDS ORDERED: POTASSIUM CHLORIDE 20 MEQ TAB.PRT.SR PO ONE (06:00)
[2018-09-06] MEDS: PROPOFOL 100 ML IV PRN (06:30)
--- NOTE | 2018-09-06 07:16 | NUR ---
RN NOTES PATIENT REMAINED ORALLY INTUBATED. VENT SETTING TOLERATED WELL. AFEBRILE THROUGHOUT THE SHIFT. VSS CLOSELY MONITORED. CONTINUE WITH LEVOPHED TITRATED PROTOCOL. ALMAZ PICC LINE RUNNING WITH DIPRIVAN AND LEVOPHED AND TOLERATED WELL. OGT CLAMPED. PATENCY CHECKED. WITH ZERO RESIDUAL. F/C C/D/I DRAINED WITH YELLOW COLOR URINE. CONTINUE WITH FLEXISEAL WITH LIQUID STOOL , LACTULOSE CONTINUE. POTASSIUM 2.[address] MILES ADMINISTERED ORDERED. PT IS CLEANED AND DRY. ENDORSED CONTINUITY OF CARE TO AM NURSE.
--- NOTE | 2018-09-06 07:30 | NUR ---
INSTRUCTOR DRAMATIC ARTS: ordered K+ 40 meq IV by report
[2018-09-06] MEDS: PIPERACILLIN /TAZOBACTAM 3.375 G in IV D5W 100 ML IV SCH ×2 (07:59→19:31)
[2018-09-06] MEDS: POTASSIUM CL. PREMIX PERIPHER. 50 ML IV SCH ×4 (08:00→11:04)
--- NOTE | 2018-09-06 08:00 | NUR ---
PRINT DECORATOR: pt.is sedated well with 15 mcg/kg/m Diprivan, reactive: grimacing by touch, on wrists restraints, pt was reactive with sedation vacation before by report, R.wrist opened 1cm blister/ applied mepilex, O2sat. over 94%, FiO2 35%, on Levophed gtt 3mcg/m now, SBP 90-100, SR, NGT LIS stopped yesterday, still NPO, getting lactulose/flexiseal tube: diarrhea, plan by report: JAS today
--- NOTE | 2018-09-06 08:30 | NUR ---
DURABLE MEDICAL EQUIPMENT TECHNICIAN: is in room, updated with pt.current status, sedation level, Levophed gtt, VS, said: start SIMV at lunch time
[2018-09-06] MEDS: DOXYCYCLINE HYCLATE (100 MG) 100 MG TABLET PO SCH ×2 (08:35→20:34)
[2018-09-06] MEDS: FERROUS SULFATE (325 MG) 325 MG/TAB TABLET PO SCH ×2 (08:35→17:11)
[2018-09-06] MEDS: HEPARIN SODIUM, PORCINE 5000 UNITS/1 ML VIAL SQ SCH ×2 (08:36→20:35)
[2018-09-06] MEDS: SUCRALFATE 1 G TABLET PO SCH ×2 (08:37→17:11)
[2018-09-06] MEDS: LINAGLIPTIN 5 MG TABLET PO SCH (08:37)
[2018-09-06] MEDS: FOLIC ACID 1 MG TABLET PO SCH ×2 (08:37→17:11)
[2018-09-06] MEDS: DOCUSATE SODIUM 100 MG CAPSULE PO SCH ×3 (08:44→17:00)
--- NOTE | 2018-09-06 11:26 | NUR ---
INPATIENT SERVICES RN: pharmacy called/asked to order V triglycerides
--- NOTE | 2018-09-06 11:39 | NUR ---
LIMOUSINE DRIVER: HAYLEE Lennon is in room, updated with pt.current condition, VS, sedation level, levophed gtt, NPO, I/O, meds, labs, plan for SIMV, see new orders
--- NOTE | 2018-09-06 13:15 | NUR ---
CHEMICAL PROCESS OPERATOR: sedation is off now, pt.is with open eyes, short eyes contact, rest, coughing occas., unable to follow commands, notified RT, stopped Levophed
--- NOTE | 2018-09-06 13:31 | NUR ---
PARTY PLAN SALES AGENT: pt.is more reactive well, well tracking reaction with Nepali speaker, suctioned well, RT spoke with [facility] now
[2018-09-06 16:02] LABS: ABG BASE EXCESS 2.1 mmol/L; ABG OXYGEN SATURATION 95.2 % (92.0-98.5); ABG PCO2 37.7 mmHg (35.0-45.0); ABG PH 7.456 (7.350-7.450); ABG PO2 82.1 mmHg (75.0-100.0); AaDO2 123.6 mmHg; COHb 0.7 % (0.5-1.5); MetHb 0.4 % (0.0-1.5); O2Hb 94.2 % (94.0-97.0); PEEP,BG 5 cm H2O; SITE, ABG Left Radial
--- NOTE | 2018-09-06 16:05 | NUR ---
FULLER BRUSH MAN: reevaluated pt., got ABG, continue SIMV until tomorrow
[2018-09-06] MEDS: FUROSEMIDE 20 MG/2 ML VIAL IV SCH (17:11)
--- NOTE | 2018-09-06 17:29 | NUR ---
MORTGAGE OR LOAN UNDERWRITER: pt.is awake, eyes contact+, arms/legs activity+, uncooperative, unable to follow commands well with risk of self-extubation, on wrists restraints, pressor is off since 13.00, SR, SBP over 95, O2sat. over 94% on SIMV mode, no SOB, PM,skin,wounds,flexiseal care done, suctioned well, plan: CPAP morning time, ABG
--- NOTE | 2018-09-06 19:25 | NUR ---
WINDOWS LAPTOP TECHNICIAN RCD PT W/DX ENCEPHALOPATHY; PT IS AWAKE ABLE TO FOLLOW SIMPLE COMMANDS. BL SOFT WRIST RESTRAINTS RELEASED AND PT REACHED FOR ET TUBE; RESTRAINTS REMAIN ON FOR SAFETY. PT NSR ON MONITOR. ON SIMV MODE. PT HAS THICK BALLARD SECRETIONS. RENDERED ORAL CARE AND REPOSITIONED.
[2018-09-06] MEDS: FLUCONAZOLE (100 MG) 100 MG TABLET PO SCH (20:34)
[2018-09-07] VITALS (37 sets, daily range): BP systolic 9–134; BP diastolic 46–73
[2018-09-07] MEDS: LACTULOSE 10 G/15 ML UDC (PYXIS) PO SCH ×4 (02:08→20:29)
[2018-09-07 05:02] LABS: BASOPHILS % (AUTO) 0.7 % (0.0-2.0); EOSINOPHILS % (AUTO) 1.7 % (0.0-6.0); HEMATOCRIT 30 % (33-45); HEMOGLOBIN 9.6 g/dL (11.5-14.8); LYMPHOCYTES # (AUTO) 0.6 /CMM (0.8-4.8); LYMPHOCYTES % (AUTO) 9.5 % (20.0-44.0); MEAN CORPUSCULAR HGB CONC 32 g/dl (31.0-36.0); MEAN CORPUSCULAR VOLUME 74 fL (82-100); MONOCYTES # (AUTO) 0.6 /CMM (0.1-1.30); MONOCYTES % (AUTO) 9.2 % (2.0-12.0); NEUTROPHILS # (AUTO) 4.9 /CMM (1.8-8.9); NEUTROPHILS % (AUTO) 78.9 % (43.0-81.0); PLATELET COUNT (AUTO) 97 /CMM (150-450); RED BLOOD CELL COUNT(AUTO) 4.07 MIL/uL (4.0-5.2); WHITE BLOOD COUNT (AUTO) 6.2 K/uL (4.3-11.0)
[2018-09-07 05:29] LABS: TRIGLYCERIDES 77 mg/dL (30-150)
[2018-09-07 05:46] LABS: ALANINE AMINOTRANSFERASE 22 U/L (12-78); ALBUMIN 2.9 g/dL (3.4-5.0); ALKALINE PHOSPHATASE 124 U/L (46-116); ASPARTATE AMINOTRANSFERASE 23 U/L (15-37); BILIRUBIN,TOTAL 1.7 mg/dL (0.2-1.0); CALCIUM, SERUM 8.1 mg/dL (8.5-10.1); CARBON DIOXIDE 26 mmol/L (21-32); CHLORIDE 106 mmol/L (98-107); CREATININE 1.5 mg/dL (0.6-1.3); GLUCOSE 158 mg/dL (74-106); MAGNESIUM 2.3 mg/dL (1.8-2.4); PHOSPHORUS 3.5 mg/dL (2.5-4.9); SODIUM SERUM 144 mmol/L (136-145); TOTAL PROTEIN, SERUM 6.4 g/dL (6.4-8.2); UREA NITROGEN, BLOOD 58 mg/dL (7-18)
[2018-09-07 06:08] LABS: EOSINOPHILS % (MANUAL) 2 % (0-4); LYMPHOCYTES % (MANUAL) 11 % (16-48); MONOCYTES % (MANUAL) 8 % (0-11.0); NEUTROPHILS % (MANUAL) 79 (42-76)
--- NOTE | 2018-09-07 06:43 | NUR ---
MANAGER FILM NO CHANGE IN PT CONDITION. TOLERATED SIMV MODE.
[2018-09-07] MEDS ORDERED: POTASSIUM CHLORIDE 20 MEQ POWDER PACKET GT ONE (08:00)
--- NOTE | 2018-09-07 08:00 | NUR ---
TRANSFER ENGINEER: pt.is awake, eyes contact+, rest now, on wrists restraints, can follow simple commands, SR, SBP over 100, O2sat. over 95% on SIMV over night, was in room, updated, see new orders
[2018-09-07] MEDS: POTASSIUM CL. PREMIX PERIPHER. 50 ML IV SCH ×2 (08:37→09:46)
[2018-09-07] MEDS: HEPARIN SODIUM, PORCINE 5000 UNITS/1 ML VIAL SQ SCH ×2 (08:38→20:34)
[2018-09-07] MEDS: PIPERACILLIN /TAZOBACTAM 3.375 G in IV D5W 100 ML IV SCH ×2 (08:38→19:15)
[2018-09-07] MEDS: FUROSEMIDE 20 MG/2 ML VIAL IV SCH ×2 (08:38→16:35)
[2018-09-07] MEDS: FERROUS SULFATE (325 MG) 325 MG/TAB TABLET PO SCH ×2 (08:39→16:34)
[2018-09-07] MEDS: FOLIC ACID 1 MG TABLET PO SCH ×2 (08:39→16:34)
[2018-09-07] MEDS: LINAGLIPTIN 5 MG TABLET PO SCH (08:39)
[2018-09-07] MEDS: DOCUSATE SODIUM 100 MG CAPSULE PO SCH ×2 (08:39→16:35)
[2018-09-07] MEDS: SUCRALFATE 1 G TABLET PO SCH ×2 (08:39→16:34)
[2018-09-07] MEDS: DOXYCYCLINE HYCLATE (100 MG) 100 MG TABLET PO SCH ×2 (08:39→20:29)
--- NOTE | 2018-09-07 09:30 | NUR ---
ELECTRICAL AND RADIO AIRCRAFT MECHANIC: pt.is awake, rest, no SOB, O2sat. over 95%, SR, tolerated well for CPAP
--- NOTE | 2018-09-07 10:40 | NUR ---
SEARCH LEAD: is in room, updated with pt.ABG, VS, O2sat., suction amount, neurostatus with progress by more strong tracking reactions, pressor is off 24hrs, NPO, labs, belly distention(cirrhosis,ascites), orders, said: continue monitoring and suction pt.well, RT notified
[2018-09-07 10:42] LABS: ABG BASE EXCESS 2.3 mmol/L; ABG OXYGEN SATURATION 96.6 % (92.0-98.5); ABG PCO2 40.6 mmHg (35.0-45.0); ABG PH 7.436 (7.350-7.450); ABG PO2 91.3 mmHg (75.0-100.0); AaDO2 111.1 mmHg; COHb 0.8 % (0.5-1.5); MetHb 0.2 % (0.0-1.5); O2Hb 95.6 % (94.0-97.0); PEEP,BG 5 cm H2O; SITE, ABG Left Radial; VENT MODE, BG CPAP PS 12
--- NOTE | 2018-09-07 12:45 | NUR ---
CITY SUPERINTENDENT OF SCHOOLS: HAYLEE Lennon is in room, updated with pt.current condition, VS, neurostatus, CPAP vent mode now, I/O, still NPO, meds, labs, visit/note to keep pt.today on CPAP with good suction, pt.son visit, see new orders
--- NOTE | 2018-09-07 17:01 | NUR ---
RT END OF THE SHIFT REPORT, PT. 73 YEARS OLD FEMALE REC. IN AM 0700 PT. ORALLY INTUBATED ETT # 7.5 @22 CM LIPLINE ON VENT WITH NOTED SIMV SETTINGS, @0805 PLACED ON CPAP PER MD ORDER AND RAI. WELL POST ABG NO OTHER CHANGES AND PT. REMAIN STABLE, ON CPAP MODE. B/S BILATERALLY RALES, SUX'D FOR MINIMAL/AMT AMT THIN WHITE/REDDISH SECRETIONS, VENDOR SPECIALIST DONE, EQUAL CHEST RISE NOTED, HME CHANGED, VENT PLUGGED INTO RED OUT LET. AMBU BAG REMAIN AT THE BEDSIDE. REPORT WILL PASS TO PM SHIFT. Addendum: 09/07/18 at 1703 by VALARIE JAIME RT Amended: Links added.
--- NOTE | 2018-09-07 17:09 | NUR ---
HUMAN RESOURCES REPRESENTATIVE: pt.is rest, no pain, no SOB, good eyes contact, can squeeze fingers, but still very weak, on wrists restraints, able to touch ETT spont., SR, SBP over 100, O2sat. over 96%, no SOB, tolerate well for CPAP, suctioned well q1-2 hrs, PM, skin, wound, rectal tube care done, pt family is in room/updated
[2018-09-07] MEDS: FLUCONAZOLE (100 MG) 100 MG TABLET PO SCH (20:29)
--- NOTE | 2018-09-07 22:52 | NUR ---
RECEIVED PT INTUBATED 7.5 ETT SECURED AT 22CM AT THE LIP. PT IS AWAKE ON CPAP MODE. TOLERATING VENT SETTINGS. SX'D FOR MOD AMT THICK SECRETIONS. VENT ALARMS SET AND AUDIBLE. AMBU BAG AT BEDSIDE. WILL CONTINUE TO MONITOR. Addendum: 09/07/18 at 2254 by ALEJO FERNANDES RT Amended: Links added.
[2018-09-08] VITALS (32 sets, daily range): BP systolic 106–152; BP diastolic 22–75
[2018-09-08] MEDS: LACTULOSE 10 G/15 ML UDC (PYXIS) PO SCH ×4 (03:17→21:00)
[2018-09-08 04:42] LABS: BASOPHILS % (AUTO) 0.3 % (0.0-2.0); EOSINOPHILS % (AUTO) 3.1 % (0.0-6.0); HEMATOCRIT 31 % (33-45); HEMOGLOBIN 9.6 g/dL (11.5-14.8); LYMPHOCYTES # (AUTO) 0.5 /CMM (0.8-4.8); LYMPHOCYTES % (AUTO) 8.6 % (20.0-44.0); MEAN CORPUSCULAR HGB CONC 31 g/dl (31.0-36.0); MEAN CORPUSCULAR VOLUME 76 fL (82-100); MONOCYTES # (AUTO) 0.7 /CMM (0.1-1.30); MONOCYTES % (AUTO) 12.7 % (2.0-12.0); NEUTROPHILS % (AUTO) 75.3 % (43.0-81.0); PLATELET COUNT (AUTO) 83 /CMM (150-450); RED BLOOD CELL COUNT(AUTO) 4.11 MIL/uL (4.0-5.2); WHITE BLOOD COUNT (AUTO) 5.3 K/uL (4.3-11.0)
[2018-09-08 05:11] LABS: CALCIUM, SERUM 8.6 mg/dL (8.5-10.1); CARBON DIOXIDE 28 mmol/L (21-32); CHLORIDE 112 mmol/L (98-107); GLUCOSE 142 mg/dL (74-106); MAGNESIUM 2.2 mg/dL (1.8-2.4); PHOSPHORUS 2.7 mg/dL (2.5-4.9); POTASSIUM 3.4 mmol/L (3.5-5.1); SODIUM SERUM 150 mmol/L (136-145); UREA NITROGEN, BLOOD 44 mg/dL (7-18)
--- NOTE | 2018-09-08 07:42 | NUR ---
INITIAL AUTO GLASS INSTALLER NOTE RCVD PT AWAKE AND ALERT, ABLE TO FOLLOW COMMANDS IN [place], BILATERAL SOFT WRIST RESTRAINTS IN PLACE, CIRCULATION CHECKS DONE. SR WITH PACs ON MONITOR, TOLERATING VENT SETTING, ETT 7.5 22 AT LIP LINE, GUIDRY TO GRAVITY DRAINING CLOUDY, OG-TUBE PLACEMENT VERIFIED BY AUSCULTATION/ASPIRATIONG OF GASTRIC CONTENTS. BETTY COLORED URINE. FLEXISEAL DRAINING LIQUID GREEN STOOL. ALMAZ PICC C/D/I/PATENT, NO S/O INFILTRATION/PHLEBITIS OBSERVED UPON FLUSHING. PT NPO EXCEPT MEDS AT THIS TIME. WILL CONTINUE TO MONITOR PT FOR SAFETY AND COMFORT. CALL LIGHT WITHIN REACH, HEAD OF BED ELEVATED.
[2018-09-08] MEDS: PIPERACILLIN /TAZOBACTAM 3.375 G in IV D5W 100 ML IV SCH ×2 (07:46→21:37)
--- NOTE | 2018-09-08 07:56 | NUR ---
RT Pt received orally intubated with a 7.5 ETT secured at 22cm at the lip line. Pt is awake and alert. Vent alarms are set and audible with BVM by bedside. FORENSIC SCIENTIST cuff pressure noted. Vent is plugged into red outlet. Sx'd small thick pale yellow secretions. No respiratory distress noted at this time. Addendum: 09/08/18 at 1305 by DAVIDSON WEISS RT Amended: Links added.
[2018-09-08 08:18] LABS: ABG BASE EXCESS 3.8 mmol/L; ABG OXYGEN SATURATION 96.9 % (92.0-98.5); ABG PCO2 49.3 mmHg (35.0-45.0); ABG PH 7.394 (7.350-7.450); ABG PO2 98.6 mmHg (75.0-100.0); AaDO2 93.6 mmHg; COHb 0.8 % (0.5-1.5); MetHb 0.7 % (0.0-1.5); O2Hb 95.4 % (94.0-97.0); SITE, ABG Right Radial; VENT MODE, BG CPAP 5 / PS 12
[2018-09-08] MEDS: HEPARIN SODIUM, PORCINE 5000 UNITS/1 ML VIAL SQ SCH ×3 (09:00→22:02)
[2018-09-08] MEDS: LINAGLIPTIN 5 MG TABLET PO SCH (09:00)
[2018-09-08] MEDS: DOXYCYCLINE HYCLATE (100 MG) 100 MG TABLET PO SCH ×2 (09:10→21:00)
[2018-09-08] MEDS: DOCUSATE SODIUM LIQ 100 MG/10 ML UDC PO SCH ×2 (09:10→16:31)
[2018-09-08] MEDS: FOLIC ACID 1 MG TABLET PO SCH ×2 (09:10→16:31)
[2018-09-08] MEDS: FERROUS SULFATE (325 MG) 325 MG/TAB TABLET PO SCH ×2 (09:10→16:31)
[2018-09-08] MEDS: SUCRALFATE 1 G TABLET PO SCH ×2 (09:10→16:31)
[2018-09-08] MEDS: FUROSEMIDE 20 MG/2 ML VIAL IV SCH ×2 (09:11→16:33)
[2018-09-08] MEDS ORDERED: POTASSIUM CHLORIDE 20 MEQ TAB.PRT.SR PO SCH (10:00)
[2018-09-08] MEDS ORDERED: DEXTROSE 50%-WATER 50 ML DISP.SYRIN IV PRN (10:30)
[2018-09-08] MEDS ORDERED: POTASSIUM CHLORIDE 20 MEQ POWDER PACKET PO SCH (10:30)
--- NOTE | 2018-09-08 11:02 | NUR ---
RT Pt started on t-piece trial per Dr. Scherer orders, pt is tolerating well at this time. Pt is able to follow commands. No respiratory or SOB noted at this time. Addendum: 09/08/18 at 1305 by DAVIDSON WEISS RT Amended: Links added.
--- NOTE | 2018-09-08 11:48 | NUR ---
BIOMEDICAL ELECTRONICS TECHNICIAN NOTE BILATERAL SOFT RESTRAINTS WERE REMOVED, PT INSTRUCTED TO NOT ATTEMPT TO PULL ETT, PT'S GRANDSON AT BEDSIDE ALSO EDUCATED TO CALL FOR ASSISTANCE. PT'S FAMILY UNDERSTOOD BOTH PT AND PT'S GRANDSON ACKNOWLEDGED AND UNDERSTOOD. WILL CONTINUE TO MONITOR. PT IS CALM AND COOPERATIVE.
--- NOTE | 2018-09-08 12:26 | NUR ---
RT Pt became agitated and self extubated. Pt placed on 2L nasal cannula. Pt is awake and alert, no SOB or respiratory distress noted. Pt has a fair productive cough. Dr. Scherer notified and aware.
[2018-09-08 12:44] LABS: ABG BASE EXCESS 2.8 mmol/L; ABG OXYGEN SATURATION 96.7 % (92.0-98.5); ABG PCO2 52.8 mmHg (35.0-45.0); ABG PH 7.359 (7.350-7.450); ABG PO2 96.7 mmHg (75.0-100.0); AaDO2 91.5 mmHg; COHb 0.8 % (0.5-1.5); MetHb 0.6 % (0.0-1.5); O2Hb 95.3 % (94.0-97.0); SITE, ABG Right Radial; VENT MODE, BG T-PIECE 35%
[2018-09-08] MEDS: BLOOD SUGAR DIAGNOSTIC 1 EACH STRIP IN SCH ×2 (13:02→17:08)
[2018-09-08] MEDS: INSULIN REGULAR, HUMAN 100 UNIT/ML 3 ML VIAL SQ PRN (13:04)
[2018-09-08] MEDS: Z GUARD REMEDY 2 OZ OINT TP PRN (13:05)
--- NOTE | 2018-09-08 13:44 | NUR ---
CHIEF SALES OFFICER NOTE PT SELF EXTUBATED, DR TATE IN UNIT AWARE, HAYLEE MURRELL UPDATED ON PT'S CONDITION AND RECENT EVENTS. PT AWAKE AND ALERT, TOLERATING O2 VIA NC, SHOWING NO S/O DISTRESS OR C/O PAIN REPORTED. BEDSIDE SWALLOW EVAL DONE. PT ABLE TO TOLERATE/SWALLOW ICE CHIPS, WATER BY TEASPOON AND APPLE SAUCE WITHOUT COUGHING OR CLEARING THROAT. PT ABLE TO PUCKER AND MOVE TONGUE FREELY SIDE TO SIDE. HAYLEE MURRELL UPDATED. NO DIET ORDERED FOR NOW WILL CONTINUE TO MONITOR RESPIRATORY FUNCTION AND IF REMAINS STABLE WILL START CLEAR LIQUIDS FOR DINNER.
[2018-09-08] MEDS: IPRATROPIUM NEB FS 0.5 MG/2.5 ML AMPUL.NEB NEB PRN (15:33)
--- NOTE | 2018-09-08 15:57 | NUR ---
RT Pt started on BiPAP per Dr. Scherer request. Pt is awake and alert and appears to be comfortable at this time. BiPAP alarms are set and audible with BVM by bedside, BiPAP is plugged into red outlet. No respiratory distress noted at this time. Addendum: 09/08/18 at 1624 by DAVIDSON WEISS RT Amended: Links added.
--- NOTE | 2018-09-08 18:12 | NUR ---
ANATOMY TEACHER NOTE PT AWAKE AND ALERT, ABLE TO FOLLOW COMMANDS, SHOWING NO S/O DISTRESS/PAIN AT THIS TIME, SR ON MONITOR WITH OCCASIONAL PACs, ON BIPAP PER DR. TATE'S RECOMMENDATION. FLEXISEAL DRAINING LIQUID, GREEN STOOL, AND GUIDRY TO GRAVITY DRAINING CLOUDY, YELLOW URINE. ALMAZ PICC C/D/I/PATEN, NO S/O INFILTRATION/PHLEBITIS OBSERVED UPON FLUSHING. PT'S CARE WILL BE ENDORSED TO MULTIPLE KNIFE EDGE TRIMMER OPERATOR RN FOR CONTINUITY OF CARE, BED IN LOW AND LOCKED POSITION. CALL LIGHT WITHIN REACH, HEAD OF BED ELEVATED, PT'S SON AT BEDSIDE, UPDATED ON PT'S CONDITION.
--- NOTE | 2018-09-08 19:50 | NUR ---
DAIRY QUALITY ASSURANCE OFFICER OPENING NOTES RECEIVED PATIENT FROM MINNIE BUCKLEY. PATIENT A/A/O X3, MOSTLY KYRGYZ-SPEAKING BUT ABLE TO MAKE SOME NEEDS KNOWN. BIPAP IN PLACE & TOLERATING VENT SETTINGS. NO RESPIRATORY DISTRESS NOTED. ON TELE W/ SINUS RHYTHM, HR 70S. RIGHT UPPER ARM PICC LINE INTACT & PATENT W/ DRESSING CDI, TKO. GUIDRY CATH DRAINING BETTY-COLORED URINE. FLEXISEAL NOTED W/ LIQUID GREEN STOOL. DENIES ANY PAIN OR DISCOMFORT @ THIS TIME. SAFETY MEASURES IN PLACE & HOB ELEVATED FOR ASPIRATION PRECAUTIONS. INSTRUCTED TO USE CALL LIGHT FOR ASSISTANCE. WILL CONTINUE TO MONITOR CLOSELY.
[2018-09-08] MEDS: FLUCONAZOLE (100 MG) 100 MG TABLET PO SCH (20:00)
--- NOTE | 2018-09-08 21:10 | NUR ---
RECEIVED PT ON BIPAP ON NOTED SETTINGS. PT IS AWAKE ALERT NO DISTRESS. TOLERATING SETTINGS. MEPILEX IN PLACE ON BRIDGE OF THE NOSE. SKIN INTACT. WILL CONTINUE TO MONITOR.
[2018-09-09] VITALS (17 sets, daily range): BP systolic 93–149; BP diastolic 33–80
[2018-09-09] MEDS: INSULIN REGULAR, HUMAN 100 UNIT/ML 3 ML VIAL SQ PRN ×3 (01:04→12:54)
[2018-09-09] MEDS: LACTULOSE 10 G/15 ML UDC (PYXIS) PO SCH ×4 (03:00→20:13)
[2018-09-09 04:52] LABS: BASOPHILS % (AUTO) 0.4 % (0.0-2.0); EOSINOPHILS % (AUTO) 4.1 % (0.0-6.0); HEMATOCRIT 31 % (33-45); HEMOGLOBIN 9.7 g/dL (11.5-14.8); LYMPHOCYTES # (AUTO) 0.5 /CMM (0.8-4.8); LYMPHOCYTES % (AUTO) 11.8 % (20.0-44.0); MEAN CORPUSCULAR HGB CONC 31 g/dl (31.0-36.0); MEAN CORPUSCULAR VOLUME 78 fL (82-100); MONOCYTES # (AUTO) 0.4 /CMM (0.1-1.30); MONOCYTES % (AUTO) 10.4 % (2.0-12.0); NEUTROPHILS % (AUTO) 73.3 % (43.0-81.0); PLATELET COUNT (AUTO) 72 /CMM (150-450); RED BLOOD CELL COUNT(AUTO) 4.01 MIL/uL (4.0-5.2); WHITE BLOOD COUNT (AUTO) 4.1 K/uL (4.3-11.0)
[2018-09-09 05:35] LABS: ALANINE AMINOTRANSFERASE 23 U/L (12-78); ALBUMIN 2.9 g/dL (3.4-5.0); ALKALINE PHOSPHATASE 118 U/L (46-116); ASPARTATE AMINOTRANSFERASE 21 U/L (15-37); BILIRUBIN,TOTAL 1.3 mg/dL (0.2-1.0); CALCIUM, SERUM 8.5 mg/dL (8.5-10.1); CARBON DIOXIDE 31 mmol/L (21-32); CHLORIDE 117 mmol/L (98-107); CREATININE 0.9 mg/dL (0.6-1.3); GLUCOSE 124 mg/dL (74-106); MAGNESIUM 1.8 mg/dL (1.8-2.4); PHOSPHORUS 2.4 mg/dL (2.5-4.9); POTASSIUM 3.3 mmol/L (3.5-5.1); SODIUM SERUM 153 mmol/L (136-145); TOTAL PROTEIN, SERUM 6.7 g/dL (6.4-8.2); UREA NITROGEN, BLOOD 32 mg/dL (7-18)
--- NOTE | 2018-09-09 06:02 | NUR ---
PT TAKEN OFF NOC BIPAP AND PLACED ON 2L NC. NOTIFIED INA WIGGINS.
[2018-09-09] MEDS: BLOOD SUGAR DIAGNOSTIC 1 EACH STRIP IN SCH ×4 (06:10→17:48)
--- NOTE | 2018-09-09 07:00 | NUR ---
ELECTRIFICATION ADVISER OPENING NOTES RECEIVED PT LYING ON BED.ALERT/ORIENTED X2,TAMAZIGHT SPEAKING.ON TELE HR IS 78 WITH SR.ON 2 L O2 VIA NC CONTINUOUSLY.NO SOB AND ACUTE DISTRESS NOTED.FC IS IN PLACE WITH CLEAR YELLOW URINE.FLEXISEAL PRESENT.RIGHT UA PICC LINE PRESENT,SITE IS CLEAN,DRY AND INTACT.NO INFILTRATION NOTED.SAFETY IS MAINTAINED AT ALL TIMES.BED IS IN LOW POSITION AND LOCKED.CALL LIGHT IS WITHIN REACH.WILL CONTINUE TO MONITOR THE PT CLOSELY.
[2018-09-09] MEDS: FUROSEMIDE 20 MG/2 ML VIAL IV SCH ×2 (08:21→17:01)
[2018-09-09] MEDS: SUCRALFATE 1 G TABLET PO SCH ×2 (08:21→17:01)
[2018-09-09] MEDS: FOLIC ACID 1 MG TABLET PO SCH ×2 (08:21→17:01)
[2018-09-09] MEDS: DOCUSATE SODIUM LIQ 100 MG/10 ML UDC PO SCH ×2 (08:21→17:01)
[2018-09-09] MEDS: LINAGLIPTIN 5 MG TABLET PO SCH (08:21)
[2018-09-09] MEDS: DOXYCYCLINE HYCLATE (100 MG) 100 MG TABLET PO SCH ×2 (08:21→20:04)
[2018-09-09] MEDS: FERROUS SULFATE (325 MG) 325 MG/TAB TABLET PO SCH ×2 (08:21→17:01)
[2018-09-09] MEDS: PIPERACILLIN /TAZOBACTAM 3.375 G in IV D5W 100 ML IV SCH ×2 (08:29→19:56)
[2018-09-09 09:07] LABS: ABG BASE EXCESS 4.9 mmol/L; ABG OXYGEN SATURATION 96.2 % (92.0-98.5); ABG PCO2 53.1 mmHg (35.0-45.0); ABG PH 7.384 (7.350-7.450); ABG PO2 87.4 mmHg (75.0-100.0); AaDO2 49.6 mmHg; COHb 0.9 % (0.5-1.5); MetHb 0.6 % (0.0-1.5); O2Hb 94.8 % (94.0-97.0); SITE, ABG Right Radial; VENT MODE, BG 2L N/C
--- NOTE | 2018-09-09 10:00 | NUR ---
SAFETY ANALYST NOTES HAYLEE LINARES SAID ITS OK TO GIVE SQ HEPARIN 5000 UNIT FOR PLATELET 72.NEW ORDERS NOTED AND CARRIED OUT.
[2018-09-09] MEDS ORDERED: POTASSIUM CHLORIDE 20 MEQ POWDER PACKET NG SCH (10:30)
[2018-09-09] MEDS: HEPARIN SODIUM, PORCINE 5000 UNITS/1 ML VIAL SQ SCH ×2 (10:39→20:14)
[2018-09-09] MEDS ORDERED: NEUTRA PHOS 1 POWD.PACKET PO ONE (11:30)
--- NOTE | 2018-09-09 11:45 | NUR ---
[facility] DEPARTMENT OF SOCIOLOGY CHAIR NOTES TRANSFERRED THE PT FROM ICU TO ROOM 104,NO COMPLICATIONS NOTED.REPORT GIVEN TO INA RUIZ FOR RAY.
--- NOTE | 2018-09-09 12:00 | NUR ---
RN NOTES PT TRANSFERRED FROM ICU 1145 AND BROUGHT TO ROOM 104. REPORT GIVEN AT BEDSIDE. PT DENIES ANY PAIN AND VITALS TAKEN. PT IS SR. WILL CONTINUE TO MONITOR.
--- NOTE | 2018-09-09 17:50 | NUR ---
RN NOTES PT FAMILY BEDSIDE. PER FAMILY PT AMBULATES WITH ASSISTANCE TO CHAIR BUT HAS NOT WALKED IN SEVERAL MONTHS.
--- NOTE | 2018-09-09 18:39 | NUR ---
RN CLOSING NOTES PT IS RESTING IN BED WITH FAMILY AT BEDSIDE. PT DENIES ANY PAIN OR SOB. PT IS A&OX2. PT HAS A PICC LINE SL. VS STABLE AND TELE MONITOR SR. PT HAS GUIDRY CATHETER INTACT AND DRAINING TO GRAVITY. PT HAS FLEXISEAL INTACT AND DRAINING TO GRAVITY. WILL ENDORSE CONTINUITY OF CARE TO CLIENT TECHNICAL SUPPORT ASSOCIATE NURSE.
--- NOTE | 2018-09-09 19:20 | NUR ---
RN NOTES, PATIENT IN BED WATCHING TV AT THIS TIME, ABLE TO VERBALIZED NEEDS, BREATHING EVEN AND UNLABORED, NO S/S SOB/ACUTE DISTRESS NOTED AT THIS TIME, DENIES ANY PAIN OR DISCOMFORT, PICC LINE SL IN ALMAZ PATENT AN INTACT, SINUS RHYTHM IN TELE MONITOR WITH HR 80S AT THIS TIME, GUIDRY CATHETER INTACT AND DRAINING YELLOW URINE BY GRAVITY, FLEXISEAL IN PLACED WITH GREENISH LIQUID MARCO NOTED. ALL NEEDS PROVIDED, REPOSITIONED PROVIDED AT THIS TIME, PATIENT CLEAN AND DRY, CALL LIGHT W/I REACH, WILL CONTINUE TO MONITOR CLOSELY.
[2018-09-09] MEDS: FLUCONAZOLE (100 MG) 100 MG TABLET PO SCH (19:57)
[2018-09-10] VITALS: BP 133/74
[2018-09-10] MEDS: INSULIN REGULAR, HUMAN 100 UNIT/ML 3 ML VIAL SQ PRN ×3 (00:04→11:58)
[2018-09-10] MEDS: LACTULOSE 10 G/15 ML UDC (PYXIS) PO SCH ×4 (02:52→21:11)
[2018-09-10 04:00] VITALS: BP 167/68
[2018-09-10] MEDS: BLOOD SUGAR DIAGNOSTIC 1 EACH STRIP IN SCH ×5 (05:40→23:30)
[2018-09-10 06:15] LABS: BASOPHILS % (AUTO) 0.6 % (0.0-2.0); EOSINOPHILS % (AUTO) 4.1 % (0.0-6.0); HEMATOCRIT 31 % (33-45); HEMOGLOBIN 9.7 g/dL (11.5-14.8); LYMPHOCYTES # (AUTO) 0.5 /CMM (0.8-4.8); LYMPHOCYTES % (AUTO) 10.9 % (20.0-44.0); MEAN CORPUSCULAR HGB CONC 31 g/dl (31.0-36.0); MEAN CORPUSCULAR VOLUME 77 fL (82-100); MONOCYTES # (AUTO) 0.5 /CMM (0.1-1.30); MONOCYTES % (AUTO) 10.9 % (2.0-12.0); NEUTROPHILS # (AUTO) 3.4 /CMM (1.8-8.9); NEUTROPHILS % (AUTO) 73.5 % (43.0-81.0); PLATELET COUNT (AUTO) 66 /CMM (150-450); RED BLOOD CELL COUNT(AUTO) 4.05 MIL/uL (4.0-5.2); WHITE BLOOD COUNT (AUTO) 4.6 K/uL (4.3-11.0)
--- NOTE | 2018-09-10 06:26 | NUR ---
RN NOTES, PATIENT IN BED SLEEPING AT THIS TIME, BUT EASY TO AROUSE WITH VERBAL STIMULI, BREATHING EVEN AND UNLABORED, NO S/S SOB/ACUTE DISTRESS NOTED AT THIS TIME, DENIES ANY PAIN OR DISCOMFORT, PICC LINE SL IN ALMAZ PATENT AN INTACT, SINUS RHYTHM IN TELE MONITOR WITH HR 80S AT THIS TIME, GUIDRY CATHETER INTACT AND DRAINING YELLOW URINE BY GRAVITY, FLEXISEAL IN PLACED WITH GREENISH LIQUID STOOL NOTED. ALL NEEDS PROVIDED, REPOSITIONED PROVIDED AT THIS TIME, USED NOCTURNAL BIPAP FROM 10-3AM, AFTER THAT SHE REFUSED TO USED THE BIPAP, EXPLAINED RISKS AND BENEFITS X3, STILL REFUSED, ON NC @ 2LPM, TOLERATED WELL AFTER THAT, PATIENT CLEAN AND DRY, CALL LIGHT W/I REACH, NO SIGNIFICANT CHANGE IN CONDITION, WILL CONTINUE TO MONITOR CLOSELY.
[2018-09-10 06:47] LABS: ALANINE AMINOTRANSFERASE 23 U/L (12-78); ALKALINE PHOSPHATASE 124 U/L (46-116); ASPARTATE AMINOTRANSFERASE 29 U/L (15-37); BILIRUBIN,TOTAL 1.3 mg/dL (0.2-1.0); CALCIUM, SERUM 8.8 mg/dL (8.5-10.1); CARBON DIOXIDE 31 mmol/L (21-32); CHLORIDE 114 mmol/L (98-107); CREATININE 0.8 mg/dL (0.6-1.3); GLUCOSE 149 mg/dL (74-106); MAGNESIUM 1.7 mg/dL (1.8-2.4); POTASSIUM 3.3 mmol/L (3.5-5.1); SODIUM SERUM 153 mmol/L (136-145); TOTAL PROTEIN, SERUM 6.7 g/dL (6.4-8.2); UREA NITROGEN, BLOOD 22 mg/dL (7-18)
--- NOTE | 2018-09-10 07:45 | NUR ---
TELE1/RN ROUNDS - DR. ALEXANDER (NEUROLOGIST) PT SEEN AND EXAMINED BY DR. ALEXANDER. NO NEW ORDER RECEIVED AT THIS TIME. MONITORING CONTINUED.
[2018-09-10 08:00] VITALS: BP 144/67
--- NOTE | 2018-09-10 08:00 | NUR ---
TD/RN AM SHIFT INITIAL NOTES RECEIVED PT AWAKE SITTING IN BED, PT A/O X 2-3 MALTESE SPEAKING, COMPLAINT OF GENERALIZED PAIN. NO ACUTE CHANGE OF CONDITION. PT ON 2L O2 VIA N/C SATURATING @ 100%, LUNG SOUNDS DIMINISHED. RESPIRATIONS EVEN AND UNLABORED. ON TELE MONITORING WITH SINUS RHYTHM, HR 86. PIC LINE FLUSHED, PATENT, NO S/S OF INFECTION, SL. GUIDRY CATHETER INTACT WITH YELLOW URINE OUTPUT AND RECTAL TUBE IN PLACED WITH MINIMAL LIQUID BROWN FECAL OUTPUT. PT TO BE GIVEN PAIN MEDICATION AND SCHEDULED AM MEDS. CL WITHIN REACHED AND SAFETY MAINTAINED. ON GOING MONITORING.
[2018-09-10] MEDS ORDERED: POTASSIUM CHLORIDE 20 MEQ TAB.PRT.SR PO ONE (08:30)
[2018-09-10] MEDS: DOCUSATE SODIUM LIQ 100 MG/10 ML UDC PO SCH ×2 (08:36→16:24)
[2018-09-10] MEDS: FERROUS SULFATE (325 MG) 325 MG/TAB TABLET PO SCH ×2 (08:37→16:24)
[2018-09-10] MEDS: FOLIC ACID 1 MG TABLET PO SCH ×2 (08:37→16:24)
[2018-09-10] MEDS: SUCRALFATE 1 G TABLET PO SCH ×2 (08:37→16:24)
[2018-09-10] MEDS: LINAGLIPTIN 5 MG TABLET PO SCH (08:37)
[2018-09-10] MEDS: HEPARIN SODIUM, PORCINE 5000 UNITS/1 ML VIAL SQ SCH (08:38)
[2018-09-10] MEDS: HYDROCODONE/APAP 5/325MG 1 EACH TABLET PO PRN (08:41)
[2018-09-10] MEDS: FUROSEMIDE 20 MG/2 ML VIAL IV SCH ×2 (08:43→16:24)
[2018-09-10] MEDS: HYDROCHLOROTHIAZIDE 25 MG TABLET PO SCH (08:43)
--- NOTE | 2018-09-10 09:34 | NUR ---
TD/RN ROUNDS - DR. MÉNDEZ PT SEEN & EXAMINED BY DR. MÉNDEZ. NO NEW ORDER RECEIVED AT THIS TIME. MONITORING CONTINUED.
[2018-09-10] MEDS: Magnesium 1GM/D5W 100ML PREMIX 100 ML IV SCH ×2 (11:40→13:02)
[2018-09-10 12:00] VITALS: BP 129/94
[2018-09-10] MEDS ORDERED: K PHOS NEUTRAL 250 MG TABLET PO ONE (12:30)
[2018-09-10 16:00] VITALS: BP 126/72
--- NOTE | 2018-09-10 17:00 | NUR ---
TD/RN AFTERNOON ROUNDS PM CARE PROVIDED, NO CHANGE OF CONDITION. MONITORING CONTINUED.
--- NOTE | 2018-09-10 18:56 | NUR ---
TD/RN AM SHIFT END NOTES ALL NEEDS MET. NO ACUTE CHANGE OF CONDITION NOTED DURING THE SHIFT. PT ENDORSED TO PM NURSE TO CONTINUE CARE. CL WITHIN REACHED AND SAFETY MAINTAINED.
--- NOTE | 2018-09-10 19:00 | NUR ---
Received patient awake,alert,not in any distress,denies any pain.With O2 via nasal cannula 3 L/min (BIPAP @ HS ). With flexiseal rectal tube,intact and draining well (patient on Lactulose).Comfort care done,needs attended.
[2018-09-10 20:00] VITALS: BP 158/72
--- NOTE | 2018-09-10 22:30 | NUR ---
Report given to Dougie BUCKLEY.
[2018-09-10] MEDS: ACETAMINOPHEN 325 MG TABLET PO PRN (22:40)
--- NOTE | 2018-09-10 23:20 | NUR ---
TD RN NOTES RECEIVED PT ON BED. A/O X 3. ON TELE MONITOR SR. ON NASAL CANNULA 3LPM SATURATING WELL. ON TELE MONITOR SR. ON F/C DRAINING YELLOW URINE, AND FLEXISEAL DRAINING BROWN SEMI FORMED STOOL. HEAD OF BED ELEVATED. SIDE RAILS UP. CALL LIGHT WITHIN REACH. BED ALARM ON. WILL CONTINUE TO MONITOR PT CLOSELY.
--- NOTE | 2018-09-10 23:30 | NUR ---
TD RN NOTES PT REFUSING INSULIN. EXPLAINED BENEFITS X3. PT STILL REFUSED.
[2018-09-11] VITALS (7 sets, daily range): BP systolic 128–149; BP diastolic 62–80
--- NOTE | 2018-09-11 01:23 | NUR ---
TD RN NOTES PT REFUSING BIPAP. EXPLAINED RISK AND BENEFITS. PT STILL REFUSED.
--- NOTE | 2018-09-11 01:35 | NUR ---
TD RN NOTES BIPAP REMOVED , RT AT BEDSIDE. PT STILL REFUSED BIPAP, EXPLAINED RISK AND BENEFITS X3. PT STILL REFUSED. WILL MONITOR PT CLOSELY.
[2018-09-11] MEDS: LACTULOSE 10 G/15 ML UDC (PYXIS) PO SCH ×4 (04:13→20:01)
[2018-09-11] MEDS: BLOOD SUGAR DIAGNOSTIC 1 EACH STRIP IN SCH ×4 (05:55→23:08)
[2018-09-11 07:08] LABS: BASOPHILS % (AUTO) 0.8 % (0.0-2.0); EOSINOPHILS % (AUTO) 2.8 % (0.0-6.0); HEMATOCRIT 31 % (33-45); HEMOGLOBIN 9.6 g/dL (11.5-14.8); LYMPHOCYTES # (AUTO) 0.7 /CMM (0.8-4.8); LYMPHOCYTES % (AUTO) 14.6 % (20.0-44.0); MEAN CORPUSCULAR HGB CONC 31 g/dl (31.0-36.0); MEAN CORPUSCULAR VOLUME 77 fL (82-100); MONOCYTES # (AUTO) 0.4 /CMM (0.1-1.30); MONOCYTES % (AUTO) 9.4 % (2.0-12.0); NEUTROPHILS # (AUTO) 3.2 /CMM (1.8-8.9); NEUTROPHILS % (AUTO) 72.4 % (43.0-81.0); RED BLOOD CELL COUNT(AUTO) 3.99 MIL/uL (4.0-5.2); WHITE BLOOD COUNT (AUTO) 4.5 K/uL (4.3-11.0)
--- NOTE | 2018-09-11 07:20 | NUR ---
[facility] RN OPENING NOTES RECEIVED REPORT FROM PM NURSE .PT ON BED. A/O X 3. ON TELE MONITOR SR HR 74. ON NASAL CANNULA 3LPM SATURATING WELL. ON F/C DRAINING YELLOW URINE, AND FLEXI SEAL DRAINING BROWN STOOL. HEAD OF BED ELEVATED. SIDE RAILS UP. CALL LIGHT WITHIN REACH. BED ALARM ON.BED IS LOW AND IN LOCKED POSITION. WILL CONTINUE TO MONITOR .
[2018-09-11 07:23] LABS: CALCIUM, SERUM 8.8 mg/dL (8.5-10.1); CARBON DIOXIDE 31 mmol/L (21-32); CHLORIDE 112 mmol/L (98-107); CREATININE 0.6 mg/dL (0.6-1.3); GLUCOSE 122 mg/dL (74-106); MAGNESIUM 1.8 mg/dL (1.8-2.4); PHOSPHORUS 2.5 mg/dL (2.5-4.9); POTASSIUM 3.3 mmol/L (3.5-5.1); SODIUM SERUM 150 mmol/L (136-145); UREA NITROGEN, BLOOD 16 mg/dL (7-18)
[2018-09-11 07:33] LABS: PLATELET COUNT (AUTO) 47 /CMM (150-450)
[2018-09-11] MEDS: SUCRALFATE 1 G TABLET PO SCH (08:34)
[2018-09-11] MEDS: FOLIC ACID 1 MG TABLET PO SCH ×2 (08:34→16:47)
[2018-09-11] MEDS: DOCUSATE SODIUM LIQ 100 MG/10 ML UDC PO SCH ×2 (08:34→16:47)
[2018-09-11] MEDS: FUROSEMIDE 20 MG/2 ML VIAL IV SCH ×2 (08:34→16:47)
[2018-09-11] MEDS: LINAGLIPTIN 5 MG TABLET PO SCH (08:34)
[2018-09-11] MEDS: FERROUS SULFATE (325 MG) 325 MG/TAB TABLET PO SCH ×2 (08:34→16:47)
[2018-09-11] MEDS: HYDROCHLOROTHIAZIDE 25 MG TABLET PO SCH (08:34)
[2018-09-11 08:43] LABS: EOSINOPHILS % (MANUAL) 1 % (0-4); LYMPHOCYTES % (MANUAL) 5 % (16-48); MONOCYTES % (MANUAL) 7 % (0-11.0); NEUTROPHILS % (MANUAL) 87 (42-76)
[2018-09-11 10:15] LABS: D-DIMER 18.16 mg/L(FEU (0.17-0.50)
[2018-09-11] MEDS ORDERED: POTASSIUM CHLORIDE 20 MEQ POWDER PACKET NG SCH (10:30)
--- NOTE | 2018-09-11 11:43 | NUR ---
[facility] RN NOTE LEFT MESSAGE TO SOLDERING MACHINE OPERATOR AUTOMATIC [employer] REGARDING D DIMER RESULT AND PLATELET LEVEL.
[2018-09-11] MEDS: HYDROCODONE/APAP 5/325MG 1 EACH TABLET PO PRN (11:58)
[2018-09-11] MEDS: INSULIN REGULAR, HUMAN 100 UNIT/ML 3 ML VIAL SQ PRN (12:35)
--- NOTE | 2018-09-11 15:00 | NUR ---
[facility] RN NOTE SEEN BY HAYLEE PRESTON UPDATED ABOUT PATIENT CONDITION WITH LABS ,LOW PLATELET .MADE AWARE THAT PATIENT IS NOT ON ANY DVT PROPHYLAXIS.WILL CONTINUE TO MONITOR.
[2018-09-11] MEDS: PANTOPRAZOLE 40 MG VIAL IV SCH (16:47)
[2018-09-11] MEDS ORDERED: RIFAXIMIN 550 MG TABLET PO ONE (18:00)
--- NOTE | 2018-09-11 19:12 | NUR ---
[facility] RN CLOSING NOTES PT ON BED. A/O X 3. WITH PERIODS OF CONFUSION.ON TELE MONITOR SR HR 72. ON NASAL CANNULA 3LPM SATURATING WELL. ON F/C DRAINING YELLOW URINE, AND FLEXI SEAL DRAINING BROWN STOOL. HEAD OF BED ELEVATED. SIDE RAILS UP. CALL LIGHT WITHIN REACH. BED ALARM ON.BED IS LOW AND IN LOCKED POSITION. SEEN BY HAYLEE VARGAS ,UPDATED ABOUT PATIENT CONDITION WITH ELEVATED AMMONIA LEVEL.GOT NEW ORDER FOR CT ABDOMEN.CT ABDOMEN DONE.WAITING FOR RESULT.SEEN BY UPDATED ABOUT PATIENT CONDITION WITH LOW PLATELET LEVEL.GOT NEW ORDER FOR LABS.ENDORSED TO PM NURSE FOR RAY.
--- NOTE | 2018-09-11 19:14 | NUR ---
TD RN NOTES RECEIVED PT ON BED. A/O X3. ON NASAL CANNULA 3LPM NO RESPIRATORY DISTRESS. ON TELE MONITOR 82HR. ON FLEXISEAL AND F/C DRAINING YELLOW URINE. IV ACCESS ON ALMAZ PICC PATENT AND INTACT. HEAD OF BED ELEVATED. SIDE RAILS UP. CALL LIGHT WITHIN REACH. BED ALARM ON. WILL CONTINUE TO MONITOR PT CLOSELY.
--- NOTE | 2018-09-11 19:37 | NUR ---
NERI RN NOTES INFORMED ELIAS SCALE TANK OPERATOR REGARDING CT ABDOMEN RESULTS. AWAITING CALL BACK. WILL MONITOR PT CLOSELY.
[2018-09-12] VITALS: BP 128/62
--- NOTE | 2018-09-12 00:09 | NUR ---
TD RN NOTES PT REFUSING BIPAP, RT AT BEDSIDE. EXPLAINED BENEFITS AND RISK X3. PT STILL REFUSED. CHARGE NURSE INFORMED.
[2018-09-12] MEDS: LACTULOSE 10 G/15 ML UDC (PYXIS) PO SCH ×4 (03:24→20:40)
[2018-09-12 04:00] VITALS: BP 109/55
[2018-09-12] MEDS: BLOOD SUGAR DIAGNOSTIC 1 EACH STRIP IN SCH ×4 (05:31→23:58)
[2018-09-12 06:42] LABS: BASOPHILS % (AUTO) 1.1 % (0.0-2.0); EOSINOPHILS % (AUTO) 3.7 % (0.0-6.0); HEMATOCRIT 30 % (33-45); HEMOGLOBIN 9.6 g/dL (11.5-14.8); LYMPHOCYTES # (AUTO) 0.8 /CMM (0.8-4.8); LYMPHOCYTES % (AUTO) 16.8 % (20.0-44.0); MEAN CORPUSCULAR HGB CONC 32 g/dl (31.0-36.0); MEAN CORPUSCULAR VOLUME 77 fL (82-100); MONOCYTES # (AUTO) 0.4 /CMM (0.1-1.30); NEUTROPHILS # (AUTO) 3.1 /CMM (1.8-8.9); NEUTROPHILS % (AUTO) 68.4 % (43.0-81.0); RED BLOOD CELL COUNT(AUTO) 3.94 MIL/uL (4.0-5.2); WHITE BLOOD COUNT (AUTO) 4.5 K/uL (4.3-11.0)
[2018-09-12 06:48] LABS: CALCIUM, SERUM 8.9 mg/dL (8.5-10.1); CARBON DIOXIDE 33 mmol/L (21-32); CHLORIDE 107 mmol/L (98-107); CREATININE 0.7 mg/dL (0.6-1.3); GLUCOSE 123 mg/dL (74-106); POTASSIUM 3.2 mmol/L (3.5-5.1); SODIUM SERUM 147 mmol/L (136-145); UREA NITROGEN, BLOOD 13 mg/dL (7-18)
--- NOTE | 2018-09-12 06:50 | NUR ---
TD RN NOTES PT REFUSING NASAL CANNULA 3LPM. EXPLAINED RISK AND BENEFITS. PT STILL REFUSED.
[2018-09-12 07:02] LABS: PLATELET COUNT (AUTO) 43 /CMM (150-450)
--- NOTE | 2018-09-12 07:19 | NUR ---
TD RN NOTES NO RESPIRATORY DISTRESS NOTED THRU THE SHIFT. PT REFUSING BIPAP AND NASAL CANNULA THRU THE SHIFT. ENDORSED TO THE AM NURSE REGARDING PLATELET COUNT.
[2018-09-12 08:00] VITALS: BP 130/60
--- NOTE | 2018-09-12 08:00 | NUR ---
[facility] RN NOTES RECEIVED PT IN BED, A/O X2, VERBAL RESPONSES, 2L NC, NO SOB NOTED, ON TELE MONITOR, SINUS HR 80, WITH F/C TO GRAVITY YELLOW BETTY COLOR, FLEXESEAL RECTAL TUBE IN PLACE FLUSHED WELL, ON ZAIRA MAX BED FOR SKIN MANAGEMENT IN PLACE, BIPAP MACHINE STOPPED BY RT ON NC 2L.PICC LINE ALMAZ IN PLACE, FLUSHED WELL, BED LOWEST AND LOCKED POSITION , CALL LIGHT WITHIN REACH, SAFETY MEASURE OBSERVED,PLAN OF CARE DISCUSSED WITH PT, ATE 25% OF BREAKFAST WITH ASSISTANCE, WILL CONTINUE TO MONITOR.
[2018-09-12] MEDS: RIFAXIMIN 550 MG TABLET PO SCH ×2 (08:38→16:06)
[2018-09-12] MEDS: FOLIC ACID 1 MG TABLET PO SCH ×2 (08:38→16:05)
[2018-09-12] MEDS: HYDROCHLOROTHIAZIDE 25 MG TABLET PO SCH (08:39)
[2018-09-12] MEDS: FERROUS SULFATE (325 MG) 325 MG/TAB TABLET PO SCH ×2 (08:39→16:06)
[2018-09-12] MEDS: LINAGLIPTIN 5 MG TABLET PO SCH (08:39)
[2018-09-12] MEDS: DOCUSATE SODIUM LIQ 100 MG/10 ML UDC PO SCH ×2 (08:40→16:05)
[2018-09-12] MEDS: FUROSEMIDE 20 MG/2 ML VIAL IV SCH ×2 (08:40→16:05)
[2018-09-12 08:45] LABS: EOSINOPHILS % (MANUAL) 4 % (0-4); LYMPHOCYTES % (MANUAL) 9 % (16-48); MONOCYTES % (MANUAL) 6 % (0-11.0); NEUTROPHILS % (MANUAL) 81 (42-76)
--- NOTE | 2018-09-12 09:00 | NUR ---
delio rn not e fed by stuff ate 25% will monitor
--- NOTE | 2018-09-12 10:00 | NUR ---
telephone station installer note very restless ,changed and reposition done ,all needs attended
[2018-09-12] MEDS: POTASSIUM CHLORIDE 20 MEQ TAB.PRT.SR PO SCH ×2 (10:43→11:41)
[2018-09-12 12:00] VITALS: BP 144/69
--- NOTE | 2018-09-12 12:00 | NUR ---
delio rn note start to cough when eating will inform md
[2018-09-12] MEDS: INSULIN REGULAR, HUMAN 100 UNIT/ML 3 ML VIAL SQ PRN ×2 (13:00→17:37)
--- NOTE | 2018-09-12 13:00 | NUR ---
delio rn note restless in bed , reposition done , keep clean dry
--- NOTE | 2018-09-12 14:20 | NUR ---
delio rn note Noel valiente rn nps at bedside notified that patient removed rectal tube ok not to place at this time , also notifyed that platelets 43 and cough when eating with order swallow eval given, will f\u
[2018-09-12 16:00] VITALS: BP 135/61
[2018-09-12] MEDS: PANTOPRAZOLE 40 MG VIAL IV SCH (16:03)
--- NOTE | 2018-09-12 18:00 | NUR ---
GAME BREEDING FARM MANAGER NOTE FED BY STAFF ATE 10% STILL AT RISK FOR ASPIRATION, SWALLOE EVAL FOR TOMORROW ,
[2018-09-12 18:10] LABS: OCCULT BLOOD STOOL POSITIVE (NEGATIVE)
--- NOTE | 2018-09-12 18:34 | NUR ---
JORDON BUCKLEY NOTE SEEN BY ELIAS BUCKLEY DIRECTOR STUDENT [employer] ORDERED AMMONIA LEVEL,WILL F\U
[2018-09-12 20:00] VITALS: BP 133/67
--- NOTE | 2018-09-12 20:00 | NUR ---
[facility] RN NOTES RECEIVED PT IN BED, A/O X2, VERBAL RESPONSES, 2L NC, NO SOB NOTED, ON TELE MONITOR, SINUS HR 80, WITH F/C TO GRAVITY YELLOW BETTY COLOR, ON ZAIRA MAX BED FOR SKIN MANAGEMENT IN PLACE, BIPAP MACHINE NOCTURNAL BY RT ON NC 2L.PICC LINE ALMAZ IN PLACE, FLUSHED WELL, BED LOWEST AND LOCKED POSITION , CALL LIGHT WITHIN REACH, SAFETY MEASURE OBSERVED, WILL CONTINUE TO MONITOR.
--- NOTE | 2018-09-12 20:45 | NUR ---
[facility]A NOTE UPON RECEIVING PT, WENT TO CHANGE PT DIAPER SOILED, NOTED PICC LINE BY PT BEDSIDE WITH DRY OLD BLOOD, NO BLEEDING OR BRUISING NOTED, REPORTED INCIDENT TO CHARGE NURSE LEROY, WILL INSERT PERIPHERAL LINE AT THIS TIME.
--- NOTE | 2018-09-12 21:44 | NUR ---
RT NOTE PATIENT REFUSED NOC BIPAP AT THIS TIME. PATIENT SATING 98%. NO SOB OR RESPIRATORY DISTRESS NOTED AT THIS TIME. INA THOMPSON NOTIFIED AND AWARE.
[2018-09-13] VITALS: BP 132/63
[2018-09-13 04:00] VITALS: BP 117/57
[2018-09-13] MEDS: LACTULOSE 10 G/15 ML UDC (PYXIS) PO SCH ×4 (04:13→20:59)
[2018-09-13] MEDS: BLOOD SUGAR DIAGNOSTIC 1 EACH STRIP IN SCH ×4 (05:21→23:08)
--- NOTE | 2018-09-13 06:23 | NUR ---
[facility] RN NOTES ENDORSED PT IN BED, A/O X2, VERBAL RESPONSES, 2L NC, NO SOB NOTED, ON TELE MONITOR, SINUS HR 70, WITH F/C TO GRAVITY, 600 CC, YELLOW BETTY COLOR, ON ZAIRA MAX BED FOR SKIN MANAGEMENT IN PLACE, BIPAP MACHINE NOCTURNAL BY RT, PT REFUSED, ON NC 2L.PICC LINE ALMAZ FOUND AT BEDSIDE AT 2030, INSERTED LH#22G, INTACT, WELL SECURED FLUSH' WELL, BED LOWEST AND LOCKED POSITION , CALL LIGHT WITHIN REACH, SAFETY MEASURE OBSERVED, WILL CONTINUE TO MONITOR.
[2018-09-13 06:27] LABS: BASOPHILS % (AUTO) 1.2 % (0.0-2.0); EOSINOPHILS % (AUTO) 4.3 % (0.0-6.0); HEMATOCRIT 32 % (33-45); HEMOGLOBIN 9.9 g/dL (11.5-14.8); LYMPHOCYTES # (AUTO) 0.6 /CMM (0.8-4.8); LYMPHOCYTES % (AUTO) 15.1 % (20.0-44.0); MEAN CORPUSCULAR HGB CONC 31 g/dl (31.0-36.0); MEAN CORPUSCULAR VOLUME 77 fL (82-100); MONOCYTES # (AUTO) 0.3 /CMM (0.1-1.30); NEUTROPHILS % (AUTO) 71.4 % (43.0-81.0); RED BLOOD CELL COUNT(AUTO) 4.12 MIL/uL (4.0-5.2); WHITE BLOOD COUNT (AUTO) 4.2 K/uL (4.3-11.0)
[2018-09-13 06:53] LABS: CALCIUM, SERUM 9.2 mg/dL (8.5-10.1); CARBON DIOXIDE 31 mmol/L (21-32); CHLORIDE 106 mmol/L (98-107); CREATININE 0.7 mg/dL (0.6-1.3); GLUCOSE 126 mg/dL (74-106); POTASSIUM 3.3 mmol/L (3.5-5.1); SODIUM SERUM 147 mmol/L (136-145); UREA NITROGEN, BLOOD 12 mg/dL (7-18)
[2018-09-13 07:22] LABS: PLATELET COUNT (AUTO) 46 /CMM (150-450)
--- NOTE | 2018-09-13 07:30 | NUR ---
RN NOTES RECEIVED PATIENT IN BED, AWAKE, A/O X 2-3. ABLE TO RESPOND APPROPRIATELY. NO COMPLAINTS OF PAIN AT THIS TIME. WITH NASAL CANULA AT 2LPM SAT, TOLERATING WELL. NO SIGN OF DISTRESS NOTED. NO SOB. SR WITH HR ON THE 70'S ON TELE MONITOR. IV ACCESS ON THE L HAND G 22, IN PLACE AND INTACT, PATENT ON FLUSHING: SALINE LOCK. F/C DRAINING TO YELLOW URINE. HEAD OF BED ELEVATED. SIDE RAILS UP. CALL LIGHT WITHIN REACH. BED ALARM ON. BED ON LOW AND LOCKED POSITION. WILL CONTINUE TO MONITOR .
[2018-09-13 08:00] VITALS: BP_SYST 115; BP_SYST 139; BP_DIAS 59
[2018-09-13 08:01] LABS: BAND % (MANUAL) 3 % (0.0-5.0); EOSINOPHILS % (MANUAL) 5 % (0-4); LYMPHOCYTES % (MANUAL) 16 % (16-48); MONOCYTES % (MANUAL) 8 % (0-11.0); NEUTROPHILS % (MANUAL) 68 (42-76)
[2018-09-13] MEDS: RIFAXIMIN 550 MG TABLET PO SCH ×2 (08:18→17:23)
[2018-09-13] MEDS: FUROSEMIDE 20 MG/2 ML VIAL IV SCH ×2 (08:18→17:23)
[2018-09-13] MEDS: POTASSIUM CL. PREMIX PERIPHER. 50 ML IV SCH ×4 (08:18→12:42)
[2018-09-13] MEDS: DOCUSATE SODIUM LIQ 100 MG/10 ML UDC PO SCH ×2 (08:19→17:23)
[2018-09-13] MEDS: FERROUS SULFATE (325 MG) 325 MG/TAB TABLET PO SCH ×2 (08:19→17:23)
[2018-09-13] MEDS: HYDROCHLOROTHIAZIDE 25 MG TABLET PO SCH (08:19)
[2018-09-13] MEDS: LINAGLIPTIN 5 MG TABLET PO SCH (08:19)
[2018-09-13] MEDS: FOLIC ACID 1 MG TABLET PO SCH ×2 (08:19→17:23)
[2018-09-13] MEDS: PANTOPRAZOLE 40 MG VIAL IV SCH ×2 (08:20→17:20)
[2018-09-13] MEDS ORDERED: IV NS 0.9% 250 ML BAG IV PRN (09:00)
[2018-09-13] MEDS: INSULIN REGULAR, HUMAN 100 UNIT/ML 3 ML VIAL SQ PRN ×2 (12:42→18:22)
[2018-09-13] MEDS: ACETAMINOPHEN 325 MG TABLET PO PRN ×2 (14:24→21:54)
[2018-09-13 16:00] VITALS: BP 132/65
--- NOTE | 2018-09-13 19:25 | NUR ---
RN NOTES ENDORSED PATIENT FOR CONTINUITY OF CARE. NO ACUTE CHANGES WITHIN THE SHIFT. NO SOB NOTED. NO RESPIRATORY DISTRESS NOTED. DENIES AY PAIN. IV LINES IN PLACE. IVF INFUSING. PT CLEAN AND DRY. PT COMFORTABLE. CALL LIGHT WITHIN REACH. SAFETY MEASURES IN PLACE. HOB ELEVATED.
--- NOTE | 2018-09-13 19:42 | NUR ---
MS RN NOTES RECEIVED PT ON BED. A/O X 3. ON FC DRAINING YELLOW URINE. PT REFUSING NASAL CANNULA 3LPM. NO RESPIRATORY DISTRESS NOTED. IV ACCESS ON RFA G20 PATENT AND INTACT. HEAD OF BED ELEVATED. SIDE RAILS UP. CALL LIGHT WITHIN REACH. BED ALARM ON. WILL CONTINUE TO MONITOR PT CLOSELY.
[2018-09-13 20:00] VITALS: BP 145/65
--- NOTE | 2018-09-13 23:00 | NUR ---
MS RN NOTES PT REFUSING BIPAP HS. EXPLAINED RISK AND BENEFITS X3. PT STILL REFUSED.
--- NOTE | 2018-09-13 23:08 | NUR ---
MS RN NOTES PT REFUSING INSULIN. EXPLAINED RISK AND BENEFITS. PT STILL REFUSED
[2018-09-14] MEDS: LACTULOSE 10 G/15 ML UDC (PYXIS) PO SCH ×4 (02:18→20:33)
[2018-09-14] MEDS: HYDROCODONE/APAP 5/325MG 1 EACH TABLET PO PRN ×2 (02:59→13:08)
[2018-09-14 04:00] VITALS: BP 141/56
[2018-09-14] MEDS: BLOOD SUGAR DIAGNOSTIC 1 EACH STRIP IN SCH ×4 (05:13→23:30)
--- NOTE | 2018-09-14 05:16 | NUR ---
MS RN NOTES PT REFUSING BEDBATH, PER PT SHE IS CLEAN. GRINDER AND HONER OPERATOR AUTOMATIC AT BEDSIDE. EXPLAINED BENEFITS X3, PT STILL REFUSED. PER PT SHE WANTS TO SLEEP.
[2018-09-14 06:21] LABS: BASOPHILS % (AUTO) 1.1 % (0.0-2.0); EOSINOPHILS % (AUTO) 4.9 % (0.0-6.0); HEMATOCRIT 31 % (33-45); HEMOGLOBIN 9.7 g/dL (11.5-14.8); LYMPHOCYTES # (AUTO) 0.7 /CMM (0.8-4.8); LYMPHOCYTES % (AUTO) 15.5 % (20.0-44.0); MEAN CORPUSCULAR HGB CONC 32 g/dl (31.0-36.0); MEAN CORPUSCULAR VOLUME 77 fL (82-100); MONOCYTES # (AUTO) 0.3 /CMM (0.1-1.30); MONOCYTES % (AUTO) 7.5 % (2.0-12.0); RED BLOOD CELL COUNT(AUTO) 4.01 MIL/uL (4.0-5.2); WHITE BLOOD COUNT (AUTO) 4.2 K/uL (4.3-11.0)
[2018-09-14 06:26] LABS: PLATELET COUNT (AUTO) 50 /CMM (150-450)
[2018-09-14 06:31] LABS: CALCIUM, SERUM 8.9 mg/dL (8.5-10.1); CARBON DIOXIDE 36 mmol/L (21-32); CHLORIDE 106 mmol/L (98-107); CREATININE 0.7 mg/dL (0.6-1.3); GLUCOSE 139 mg/dL (74-106); POTASSIUM 3.4 mmol/L (3.5-5.1); SODIUM SERUM 146 mmol/L (136-145); UREA NITROGEN, BLOOD 11 mg/dL (7-18)
--- NOTE | 2018-09-14 07:00 | NUR ---
MS RN NOTES NO ACUTE CHANGES NOTED DURING THE SHIFT. NO RESPIRATORY DISTRESS NOTED. PT REFUSING NASAL CANNULA , BED BATH AND BIPAP. EXPLAINED BENEFITS, PT STILL REFUSED. WILL ENDORSE TO THE AM NURSE FOR CONTINUITY OF CARE.
--- NOTE | 2018-09-14 07:12 | NUR ---
RN MS OPENING NOTES RECEIVED BEDSIDE REPORT PATIENT ASLEEP ABLE TO AROUSE WITH VOICE AND TOUCH. AFGHAN SPEAKING A/O X2. NO SIGNS OR SYMPTOMS OF RESPIRATORY DISTRESS OR ACUTE PAIN ON 2 LTRS . GUIDRY CATH DRAINING CLEAR YELLOW URINE . IV TO RFA # 22 SL. ON BARIATRIC BED SAFETY PRECAUTIONS IN PLACE BED IN LOW POSITION CALL LIGHT WITH IN REACH WILL CONT TO MONITOR.
[2018-09-14 08:00] VITALS: BP 127/61
[2018-09-14 08:09] VITALS: BP 127/61
[2018-09-14] MEDS: RIFAXIMIN 550 MG TABLET PO SCH ×2 (08:57→16:29)
[2018-09-14] MEDS: FUROSEMIDE 20 MG/2 ML VIAL IV SCH ×2 (08:57→16:29)
[2018-09-14] MEDS: DOCUSATE SODIUM LIQ 100 MG/10 ML UDC PO SCH ×2 (08:57→17:15)
[2018-09-14] MEDS: FERROUS SULFATE (325 MG) 325 MG/TAB TABLET PO SCH ×2 (08:57→16:29)
[2018-09-14] MEDS: FOLIC ACID 1 MG TABLET PO SCH ×2 (08:57→16:29)
[2018-09-14] MEDS: LINAGLIPTIN 5 MG TABLET PO SCH (08:58)
[2018-09-14] MEDS: HYDROCHLOROTHIAZIDE 25 MG TABLET PO SCH (08:58)
[2018-09-14 09:32] LABS: EOSINOPHILS % (MANUAL) 5 % (0-4); LYMPHOCYTES % (MANUAL) 19 % (16-48); MONOCYTES % (MANUAL) 5 % (0-11.0); NEUTROPHILS % (MANUAL) 71 (42-76)
[2018-09-14] MEDS ORDERED: POTASSIUM CHLORIDE 20 MEQ TAB.PRT.SR PO SCH (10:30)
--- NOTE | 2018-09-14 11:46 | NUR ---
RN MS NOTES PT C/O CHEST PAINS NITRO 0.4 GIVEN SL. B/P 122/58
--- NOTE | 2018-09-14 11:50 | NUR ---
INA MS NOTES B/P AFTER 1X DOSE 116/57. EKG BEING DONE PER ORDER
[2018-09-14] MEDS ORDERED: NITROGLYCERIN 0.4 MG/TAB BOTTLE SL PRN (12:00)
--- NOTE | 2018-09-14 12:01 | NUR ---
EKG RESULTS SINUS RHYTHM
[2018-09-14] MEDS: INSULIN REGULAR, HUMAN 100 UNIT/ML 3 ML VIAL SQ PRN ×3 (12:48→23:29)
[2018-09-14 16:00] VITALS: BP 121/72
[2018-09-14] MEDS: PANTOPRAZOLE 40 MG VIAL IV SCH (16:29)
--- NOTE | 2018-09-14 18:29 | NUR ---
RN MS NOTES PATIENT PLEASANT THROUGHOUT THE SHIFT. CHEST PAINS SUBSIDED. NO RESPIRATORY DISTRESS NOTED NO HYPER/HYPOGLYCEMIA.A/O X4 PERSIAN SPEAKING. Addendum: 09/14/18 at 1833 by RAMON WEISS RN APPETITE GOOD COOPERATIVE WITH CARE AND MEDICATION ADMINISTRATION. KEPT CLEAN AND DRY REPOSITIONED FOR COMFORT. ON BARIATRIC BED SR UP X3 BED IN LOW POSITION ALL SAFETY AND ASPIRATION PRECAUTIONS IN PLACE. ABLE TO MAKE NEEDS KNOWN AND LL NEEDS MET BY STAFF. CALL LIGHT WITHIN REACH
--- NOTE | 2018-09-14 19:08 | NUR ---
RN MS CLOSING NOTES REPORT ENDORSED TO NOC SHIFT
[2018-09-14] MEDS ORDERED: METOPROLOL SUCCINATE 25 MG TAB.SR.24H PO SCH (20:00)
--- NOTE | 2018-09-14 20:05 | NUR ---
RN MS INITIAL NOTES RECEIVED AWAKE , AOX2, ENGLISH SPEAKING, NO SIGNS OR SYMPTOMS OF RESPIRATORY DISTRESS OR ACUTE PAIN ON 2 LTRS . GUIDRY CATH DRAINING CLEAR YELLOW URINE . IV TO RW # 22 SL. ON BARIATRIC BED SAFETY PRECAUTIONS IN PLACE BED IN LOW POSITION CALL LIGHT WITH IN REACH WILL CONT TO MONITOR.
[2018-09-15 00:40] VITALS: BP 119/71
[2018-09-15] MEDS: LACTULOSE 10 G/15 ML UDC (PYXIS) PO SCH ×4 (03:23→21:32)
[2018-09-15] MEDS: BLOOD SUGAR DIAGNOSTIC 1 EACH STRIP IN SCH ×3 (05:21→17:42)
--- NOTE | 2018-09-15 06:08 | NUR ---
RN MS CLOSING NOTES ENDORSED PT AWAKE , AOX2, LITHUANIAN SPEAKING, NO SIGNS OR SYMPTOMS OF RESPIRATORY DISTRESS OR ACUTE PAIN ON 2 LTRS . GUIDRY CATH DRAINING CLEAR YELLOW URINE, 1000 CC . IV TO RW # 22 SL. ON BARIATRIC BED SAFETY PRECAUTIONS IN PLACE BED IN LOW POSITION CALL LIGHT WITH IN REACH WILL CONT TO MONITOR.
[2018-09-15 06:13] LABS: BASOPHILS % (AUTO) 0.6 % (0.0-2.0); EOSINOPHILS % (AUTO) 3.2 % (0.0-6.0); HEMATOCRIT 32 % (33-45); HEMOGLOBIN 10.1 g/dL (11.5-14.8); LYMPHOCYTES # (AUTO) 0.6 /CMM (0.8-4.8); LYMPHOCYTES % (AUTO) 10.1 % (20.0-44.0); MEAN CORPUSCULAR HGB CONC 32 g/dl (31.0-36.0); MEAN CORPUSCULAR VOLUME 77 fL (82-100); MONOCYTES # (AUTO) 0.4 /CMM (0.1-1.30); MONOCYTES % (AUTO) 7.1 % (2.0-12.0); NEUTROPHILS # (AUTO) 4.5 /CMM (1.8-8.9); PLATELET COUNT (AUTO) 61 /CMM (150-450); RED BLOOD CELL COUNT(AUTO) 4.18 MIL/uL (4.0-5.2); WHITE BLOOD COUNT (AUTO) 5.7 K/uL (4.3-11.0)
[2018-09-15 06:29] LABS: CALCIUM, SERUM 9.4 mg/dL (8.5-10.1); CARBON DIOXIDE 35 mmol/L (21-32); CHLORIDE 103 mmol/L (98-107); CREATININE 0.7 mg/dL (0.6-1.3); GLUCOSE 148 mg/dL (74-106); POTASSIUM 3.4 mmol/L (3.5-5.1); SODIUM SERUM 143 mmol/L (136-145); UREA NITROGEN, BLOOD 10 mg/dL (7-18)
--- NOTE | 2018-09-15 07:15 | NUR ---
RN MS OPENING NOTES RECEIVED BEDSIDE REPORT PATIENT ASLEEP ABLE TO AROUSE WITH VOICE AND TOUCH. UGANDAN SPEAKING A/O X3. NO SIGNS OR SYMPTOMS OF RESPIRATORY DISTRESS OR ACUTE PAIN ON 2 LTRS . GUIDRY CATH DRAINING CLEAR YELLOW URINE . IV TO RFA # 22 SL. ON BARIATRIC BED SAFETY PRECAUTIONS IN PLACE BED IN LOW POSITION CALL LIGHT WITH IN REACH WILL CONT TO MONITOR.
[2018-09-15 08:00] VITALS: BP 137/62
[2018-09-15 08:12] LABS: EOSINOPHILS % (MANUAL) 2 % (0-4); LYMPHOCYTES % (MANUAL) 9 % (16-48); MONOCYTES % (MANUAL) 9 % (0-11.0); NEUTROPHILS % (MANUAL) 80 (42-76)
[2018-09-15] MEDS: FERROUS SULFATE (325 MG) 325 MG/TAB TABLET PO SCH ×2 (08:54→17:34)
[2018-09-15] MEDS: LINAGLIPTIN 5 MG TABLET PO SCH (08:54)
[2018-09-15] MEDS: RIFAXIMIN 550 MG TABLET PO SCH ×2 (08:54→17:34)
[2018-09-15] MEDS: HYDROCHLOROTHIAZIDE 25 MG TABLET PO SCH (08:55)
[2018-09-15] MEDS: FOLIC ACID 1 MG TABLET PO SCH ×2 (08:55→17:33)
[2018-09-15] MEDS ORDERED: FUROSEMIDE 20 MG TABLET PO SCH (09:00)
[2018-09-15] MEDS: DOCUSATE SODIUM LIQ 100 MG/10 ML UDC PO SCH ×2 (09:00→17:00)
[2018-09-15] MEDS ORDERED: POTASSIUM CHLORIDE 20 MEQ TAB.PRT.SR PO SCH (10:30)
[2018-09-15] MEDS ORDERED: RIFA550T PO (12:12)
[2018-09-15] MEDS ORDERED: LACT10SO6 PO (12:12)
[2018-09-15] MEDS: INSULIN REGULAR, HUMAN 100 UNIT/ML 3 ML VIAL SQ PRN ×2 (12:39→17:43)
--- NOTE | 2018-09-15 13:35 | NUR ---
U/S GUIDED THORACENTESIS ORDER WILL MOST LIKELY BE CANCELLED BECAUSE PATINET MIGHT BE DISCHARGED. NO CONSENT SIGNED PER INA SINGER @ EXT [phone]. WAS INFORMED AT 6234. WILL CALL DELINQUENT TAX COLLECTOR ASSISTANT IF ANYTHING CHANGES.
--- NOTE | 2018-09-15 14:21 | NUR ---
RN MS NOTES US TECH CALLED IN REGARDS TO US GUIDED THORACENTESIS. PATIENT HAS ORDERS FOR DISCHARGE PATIENT NOT A STAT ORDER WOULD NOT BE ABLE TO DO PROCEDURE BEFORE TIME OF D/C
--- NOTE | 2018-09-15 15:31 | NUR ---
RN MS NOTES JEROD SARKAR CALLED IN REGARDS TO PATIENT DISCHARGE. FACILITY UNABLE TO OBTAIN BIPAP MACHINE. PATIENT TO BE D/C 06/18 @ 1000 PLASTICS PATTERNMAKER
[2018-09-15 16:00] VITALS: BP 127/87
--- NOTE | 2018-09-15 17:00 | NUR ---
RN MS NOTES CONSENT OBTAINED BY FOR US THORACENTESIS LEFT MESSAGE WITH ULTRASOUND DEPT
[2018-09-15] MEDS: FUROSEMIDE 20 MG TABLET PO SCH (17:34)
[2018-09-15] MEDS: PANTOPRAZOLE 40 MG VIAL IV SCH (17:40)
--- NOTE | 2018-09-15 18:55 | NUR ---
RN MS NOTES PATIENT PLEASANT THROUGHOUT THE SHIFT NO RESPIRATORY DISTRESS NOTED NO HYPER/HYPOGLYCEMIA.A/O X4 LEBANESE SPEAKING CHEST PAIN RELATED TO CPR DONE PREVIOUSLY APPETITE GOOD COOPERATIVE WITH CARE AND MEDICATION ADMINISTRATION. KEPT CLEAN AND DRY REPOSITIONED FOR COMFORT. ON BARIATRIC BED SR UP X3 BED IN LOW POSITION ALL SAFETY AND ASPIRATION PRECAUTIONS IN PLACE. ABLE TO MAKE NEEDS KNOWN AND LL NEEDS MET BY STAFF. CALL LIGHT WITHIN REACH
--- NOTE | 2018-09-15 19:32 | NUR ---
RN MS CLOSING NOTES REPORT ENDORSED TO NOC SHIFT
[2018-09-15 20:00] VITALS: BP 136/61
[2018-09-15] MEDS ORDERED: METOPROLOL SUCCINATE 25 MG TAB.SR.24H PO SCH (20:00)
--- NOTE | 2018-09-15 20:00 | NUR ---
MS RN NOTES RECEIVED PATIENT AWAKE IN BED WITH NO DISTRESS NOTED. CALL LIGHT WITHIN REACH. NO C/O PAIN OR DISCOMFORT. PERIPHERAL LINE INTACT, PATENT, AND REMAINS SALINE LOCKED. BED IN LOW LOCK SETTING. ROOM FREE OF CLUTTER AND BELONGINGS KEPT NEAR BEDSIDE. WILL CONTINUE TO MONITOR.
[2018-09-15] MEDS: HYDROCODONE/APAP 5/325MG 1 EACH TABLET PO PRN (21:32)
[2018-09-16] MEDS: BLOOD SUGAR DIAGNOSTIC 1 EACH STRIP IN SCH ×3 (00:06→11:59)
[2018-09-16] MEDS: INSULIN REGULAR, HUMAN 100 UNIT/ML 3 ML VIAL SQ PRN ×3 (00:06→12:15)
[2018-09-16 04:00] VITALS: BP 103/68
[2018-09-16] MEDS: LACTULOSE 10 G/15 ML UDC (PYXIS) PO SCH ×3 (04:25→15:00)
--- NOTE | 2018-09-16 06:02 | NUR ---
MS RN NOTES PATIENT AWAKE IN BED WITH NO DISTRESS NOTED. CALL LIGHT WITHIN REACH. PERIPHERAL LINE INTACT AND PATENT. ALL DUE MEDS GIVEN ORDERED WITH NO ASE NOTED. NO FURTHER C/O PAIN OR DISCOMFORT. BED IN LOW LOCK SETTING. ALL BELONGINGS KEPT NEAR BEDSIDE. WILL ENDORSE TO ONCOMING SHIFT.
[2018-09-16 06:43] LABS: CALCIUM, SERUM 9.4 mg/dL (8.5-10.1); CARBON DIOXIDE 35 mmol/L (21-32); CHLORIDE 101 mmol/L (98-107); CREATININE 0.7 mg/dL (0.6-1.3); GLUCOSE 154 mg/dL (74-106); POTASSIUM 3.3 mmol/L (3.5-5.1); SODIUM SERUM 143 mmol/L (136-145); UREA NITROGEN, BLOOD 9 mg/dL (7-18)
[2018-09-16 07:27] LABS: SERUM AMMONIA 39 umol/L (11-32)
[2018-09-16 08:00] VITALS: BP 143/68
[2018-09-16 08:25] LABS: B-TYPE NATRIURETIC PEPTIDE 1119 PG/ML (0-125)
[2018-09-16] MEDS: RIFAXIMIN 550 MG TABLET PO SCH ×2 (09:10→16:49)
[2018-09-16] MEDS: FOLIC ACID 1 MG TABLET PO SCH ×2 (09:10→16:52)
[2018-09-16] MEDS: FERROUS SULFATE (325 MG) 325 MG/TAB TABLET PO SCH ×2 (09:10→16:49)
[2018-09-16] MEDS: HYDROCODONE/APAP 5/325MG 1 EACH TABLET PO PRN ×2 (09:11→16:51)
[2018-09-16] MEDS: DOCUSATE SODIUM LIQ 100 MG/10 ML UDC PO SCH ×2 (09:12→16:49)
[2018-09-16] MEDS: FUROSEMIDE 20 MG TABLET PO SCH ×2 (09:12→16:52)
[2018-09-16] MEDS: LINAGLIPTIN 5 MG TABLET PO SCH (09:13)
--- NOTE | 2018-09-16 10:20 | NUR ---
RN NOTE CLARIFIED WITH DR RIVAS REGARDING US THORACENTHESIS IF IT IS NEEDED AND HE CONFIRMED TO DO IF CONSENT SIGNED. SPOKE WITH PT'S SON ELEAZAR KWAN OVER TELEPHONE AND OBTAINED CONSENT. WILL FOLLOW UP WITH RADIOLOGY.
[2018-09-16] MEDS ORDERED: POTASSIUM CHLORIDE 20 MEQ POWDER PACKET PO SCH (10:30)
--- NOTE | 2018-09-16 11:20 | NUR ---
RN NOTE PER US TECH, PT HAS NOT HAD ENOUGH FLUID TO DRAIN SO THE THORACENTHESIS IS CANCELLED. PT STABLE, NO SOB. AOX1. SAFETY MEASURES IN PLACE, WILL CONTINUE TO MONITOR
[2018-09-16 16:00] VITALS: BP 130/60
[2018-09-16] MEDS: PANTOPRAZOLE 40 MG VIAL IV SCH (16:49)
--- NOTE | 2018-09-16 17:00 | NUR ---
RN NOTE PT DISCHARGED TO [facility], IN STABLE CONDITION, PT AOX 1, CONFUSED, DISCHARGE INSTRUCTIONS PROVIDED TO PT, EXIT CARE DONE, PT UNABLE TO SIGN PAPERS ,TEACHING REINFORCED, IV REMOVED, ID BAND REMOVED, PT LEFT VIA AMBULANCE, BELONGING LIST SIGNED, BELONGINGS PROVIDED TO PT, DISCHARGE PAPERS SEND WITH AMBULANCE. BREA KEPT IN PLACE. REPORT GIVEN TO INA GARCIA AT [facility].
== END 2018-09-16 17:20 | DRG 870 ==
LOC: ER 04:04 → TELE 04:52 → MED 13:39 → ICU 20:44 → TELE-TD 09-09 11:29 → MEDSG1 09-13 08:54
PROVIDERS: ADMIT Nurse Practitioner Acute Care; ATTEND Nurse Practitioner Acute Care
PROC: 5A1955Z Respiratory Ventilation, Greater than 96 Consecutive Hours (ICD-10-PCS; principal; 2018-09-02)
PROC: 0BH17EZ Insertion of Endotracheal Airway into Trachea, Via Natural or Artificial Opening (ICD-10-PCS; 2018-09-02)
PROC: 5A12012 Performance of Cardiac Output, Single, Manual (ICD-10-PCS; 2018-09-02)
PROC: 02HV33Z Insertion of Infusion Device into Superior Vena Cava, Percutaneous Approach (ICD-10-PCS; 2018-09-03)
PROC: B548ZZA Ultrasonography of Superior Vena Cava, Guidance (ICD-10-PCS; 2018-09-03)
DX: A41.9 Sepsis, unspecified organism (principal); I46.9 Cardiac arrest, cause unspecified; N17.0 Acute kidney failure with tubular necrosis; R65.21 Severe sepsis with septic shock; J96.01 Acute respiratory failure with hypoxia; K72.00 Acute and subacute hepatic failure without coma; J69.0 Pneumonitis due to inhalation of food and vomit; I50.33 Acute on chronic diastolic (congestive) heart failure; E44.1 Mild protein-calorie malnutrition; I13.0 Hypertensive heart and chronic kidney disease with heart failure and stage 1 through stage 4 chronic kidney disease, or unspecified chronic kidney disease; E66.2 Morbid (severe) obesity with alveolar hypoventilation; E87.0 Hyperosmolality and hypernatremia; D68.69 Other thrombophilia; B37.49 Other urogenital candidiasis; D61.818 Other pancytopenia; L03.116 Cellulitis of left lower limb; L03.115 Cellulitis of right lower limb; K92.2 Gastrointestinal hemorrhage, unspecified; R18.8 Other ascites; J98.11 Atelectasis; Z68.42 Body mass index [BMI] 45.0-49.9, adult; E87.2 Acidosis; K72.90 Hepatic failure, unspecified without coma; R55 Syncope and collapse; I11.0 Hypertensive heart disease with heart failure; N18.1 Chronic kidney disease, stage 1; E11.22 Type 2 diabetes mellitus with diabetic chronic kidney disease; E83.39 Other disorders of phosphorus metabolism; E86.0 Dehydration; F03.90 Unspecified dementia, unspecified severity, without behavioral disturbance, psychotic disturbance, mood disturbance, and anxiety; D69.59 Other secondary thrombocytopenia; E83.41 Hypermagnesemia; E87.6 Hypokalemia; D50.9 Iron deficiency anemia, unspecified; B95.2 Enterococcus as the cause of diseases classified elsewhere; E88.09 Other disorders of plasma-protein metabolism, not elsewhere classified; L40.9 Psoriasis, unspecified; K74.60 Unspecified cirrhosis of liver; I07.1 Rheumatic tricuspid insufficiency; E11.65 Type 2 diabetes mellitus with hyperglycemia; R07.89 Other chest pain
CPT/HCPCS: 31720; 36415; 36569; 36600; 70450-TC; 71045-TC; 76604-TC; 76700-TC; 76770-TC; 80048-TC; 80053-TC; 80061-TC; 80076-TC; 81000-TC; 82140-TC; 82272-TC; 82550-TC; 82570-TC; 82728-TC; 82803-TC; 82962-TC; 83540-TC; 83605-TC; 83615-TC; 83735-TC; 83880; 83970; 84100-TC; 84155; 84155-TC; 84165; 84300-TC; 84439-TC; 84443-TC; 84478-TC; 84484-TC; 85025-TC; 85378-TC; 85396; 85730-TC; 86022; 87040-TC; 87070-TC; 87081-TC; 87086-TC; 87177; 87186-TC; 87209; 89055; 92611-TC; 92950-TC; 93307-TC; 93970-TC; 94002-TC; 94003-TC; 94640-TC; 94760-TC; 94799-TC; 99082-TC; A4216; C1751; C9113; G0378; J0171; J0696; J1644; J1815; J1940; J2543; J3475; J3480; J3490; J7030; J7040; J7050; J7060; P9047

== ENCOUNTER 2024-01-28 09:09 | Day surgery (SDC) | payer MEDICARE, OTHER ==
[~2024-01-28 09:09] MED LIST: ALBUT2 CONTNEB; BISA-79 PR; DOCU-141 PO; FERR325T23 PO; FOLI1TAB16 PO; FURO-144 PO; HYDR-4384 PO; IPRA12.9 IH; LACT10SO6 PO; LUBI24CA5 PO; MAGN24002 PO; METO-357 PO; MULT-1185 PO; MYLANTA PO; NA P133E RC; NOVOLOG FLEXPEN SQ; ONDA4TAB11 PO; PANT40TA2 PO; RIFA550T PO; SITA50TA PO; SUCR1TAB PO; TYL2T PO; VIT B-1 PO; [UNRECOGNIZED DRUG - OTHER]
== END 2024-01-28 12:52 | disposition home or self-care (01) ==
LOC: DS 09:09
PROVIDERS: ATTEND Surgery
DX: R19.4 Change in bowel habit (principal); K63.89 Other specified diseases of intestine; K63.5 Polyp of colon; Z53.8 Procedure and treatment not carried out for other reasons; K29.80 Duodenitis without bleeding; K31.7 Polyp of stomach and duodenum; K64.4 Residual hemorrhoidal skin tags; K31.89 Other diseases of stomach and duodenum; K44.9 Diaphragmatic hernia without obstruction or gangrene; K57.30 Diverticulosis of large intestine without perforation or abscess without bleeding; K31.A0 Gastric intestinal metaplasia, unspecified; K21.9 Gastro-esophageal reflux disease without esophagitis; I10 Essential (primary) hypertension; E10.9 Type 1 diabetes mellitus without complications; E78.5 Hyperlipidemia, unspecified; K74.60 Unspecified cirrhosis of liver; F10.10 Alcohol abuse, uncomplicated; M19.90 Unspecified osteoarthritis, unspecified site; E66.9 Obesity, unspecified; Z68.23 Body mass index [BMI] 23.0-23.9, adult; Z85.43 Personal history of malignant neoplasm of ovary; Z79.4 Long term (current) use of insulin; Z79.899 Other long term (current) drug therapy; Z88.8 Allergy status to other drugs, medicaments and biological substances; Z98.890 Other specified postprocedural states
CPT/HCPCS: 43239; 45380; 71045; 82962; 88305; 88313; 88342; J2704; J3490; J7030